=== PATIENT | female | born 1960 | race Two or more races ===

== ENCOUNTER 2017-05-21 08:49 | Emergency (ER) | payer SELFPAY ==
[2017-05-21 08:57] VITALS: BMI 26.9
[2017-05-21] MEDS ORDERED: MECLIZINE HCL 25 MG TABLET (FP) PO ONE (09:27)
--- NOTE | 2017-05-21 09:30 | PDOC ---
History of Present Illness - History of Present Illness Initial Comments: 05/21/17 09:34 The patient is a 56 year old female, with a significant past medical history of HTN (does not take medication for her high blood pressure), who presents to the emergency department with dizziness since last night around 8pm. 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 SHe arrived home around 9pm. She was able to eat some chicken and rice for dinner. She says she was unable to sleep last night. She woke up this morning feeling dizzy and nauseous. She describes her dizziness as room-spinning. She was not able to eat anything today. She states that she has experienced this before a while ago but it lasted for a short period of time and wasnt as severe. She denies recent fevers, chills, headache. She denies recent vomit, diarrhea or constipation. She denies recent chest pain or shortness of breath. Allergies: NKA Past surgical history: None reported. Primary Care Physician: not on staff. <Bharti Monsalve - Last Filed: 05/21/17 09:33> <Angie Stewart - Last Filed: 05/21/17 11:31> - General Chief Complaint: Lightheaded Stated Complaint: LIGHTHEADED and dizziness Time Seen by Provider: 05/21/17 09:07 Past History <Bharti Monsalve - Last Filed: 05/21/17 09:33> - Past Medical History HTN: Yes - Immunization History Immunization Up to Date: Yes - Suicide/Smoking/Psychosocial Hx Smoking History: Never smoked Have you smoked in the past 12 months: No Information on smoking cessation initiated: No Hx Alcohol Use: No Drug/Substance Use Hx: No Substance Use Type: None <Angie Stewart - Last Filed: 05/21/17 11:31> - Past Medical History Allergies/Adverse Reactions: Allergies Allergy/AdvReac Type Severity Reaction Status Date / Time No Known Allergies Allergy Verified 05/21/17 08:56 Home Medications: Ambulatory Orders Citalopram Hydrobromide [Citalopram HBr] 20 mg PO DAILY 02/20/15 Meclizine HCl [Antivert -] 25 mg PO TID #30 tablet 05/21/17 Review of Systems - Review of Systems Able to Perform ROS?: Yes Comments:: 05/21/17 09:34 GENERAL/CONSTITUTIONAL: No fever or chills. No weakness. HEAD, EYES, EARS, NOSE AND THROAT: No change in vision. No ear pain No sore throat. CARDIOVASCULAR: No chest pain or shortness of breath. RESPIRATORY: No cough, wheezing, or hemoptysis. GASTROINTESTINAL: +nausea. No vomiting, diarrhea or constipation. GENITOURINARY: No dysuria, frequency, or change in urination. MUSCULOSKELETAL: No joint or muscle swelling or pain. No neck or back pain. SKIN: No rash NEUROLOGIC: +vertigo. No headache, loss of consciousness, or change in strength/ sensation. ENDOCRINE: No increased thirst. No abnormal weight change. HEMATOLOGIC/LYMPHATIC: No anemia, easy bleeding, or history of blood clots. ALLERGIC/IMMUNOLOGIC: No hives or skin allergy. Is the patient limited Fijian proficient: Yes <Bharti Monsalve Filed: 05/21/17 09:33> *Physical Exam - Vital Signs Last Vital Signs Temp Pulse Resp BP Pulse Ox 98.3 F 72 16 162/58 97 05/21/17 08:53 05/21/17 08:53 05/21/17 08:53 05/21/17 08:53 05/21/17 08:53 - Physical Exam Comments: 05/21/17 09:34 GENERAL: Awake, alert, and fully oriented, in no acute distress HEAD: No signs of trauma EYES: PERRLA, EOMI, sclera anicteric, conjunctiva clear. No nystagmus ENT: +Right TM is completely blocked off with cerumen. Nares patent, oropharynx clear without exudates. Moist mucosa NECK: Normal ROM, supple, no lymphadenopathy, JVD, or masses LUNGS: Breath sounds equal, clear to auscultation bilaterally. No wheezes, and no crackles HEART: Regular rate and rhythm, normal S1 and S2, no murmurs, rubs or gallops ABDOMEN: Soft, nontender, normoactive bowel sounds. No guarding, no rebound. No masses EXTREMITIES: Normal range of motion, no edema. No clubbing or cyanosis. No cords, erythema, or tenderness NEUROLOGICAL: Cranial nerves II through XII grossly intact. Normal speech, normal gait SKIN: Warm, Dry, normal turgor, no rashes or lesions noted. <Bharti Monsalve Filed: 05/21/17 09:33> - Vital Signs Last Vital Signs Temp Pulse Resp BP Pulse Ox 98.3 F 72 16 162/58 97 05/21/17 08:53 05/21/17 08:53 05/21/17 08:53 05/21/17 08:53 05/21/17 08:53 <Angie Stewart - Last Filed: 05/21/17 11:31> Procedures - Additional Procedures Additional Procedures: lavage - initial (ear lavage) <Angie Stewart - Last Filed: 05/21/17 11:31> ED Treatment Course - LABORATORY CBC & Chemistry Diagram: 05/21/17 09:45 05/21/17 09:45 <Angie Stewart - Last Filed: 05/21/17 11:31> Medical Decision Making - Medical Decision Making 05/21/17 09:28 Pt comes with vertigo like symptoms. She had this once before, but never this bad. Pt has no folcal neuro deficits. She has a normal EKG and vitals. Exam is normal. Pt will get meclizine. Pt has a cerumen impaction on the right. We will clear it out and see if pt feels better. 05/21/17 10:34 Pt feeling a bit better with mecizine, and as I remove the impaction from her right ear 05/21/17 11:30 cerumen impaction removed with multiple ear flushes and peroxide and curette. <Angie Stewart - Last Filed: 05/21/17 11:31> *DC/Admit/Observation/Transfer - Attestations Scribe Attestion: 05/21/17 09:35 Documentation prepared by Bharti Monsalve, acting as medical lab technician for Angie Stewart MD. <Bharti Monsalve - Last Filed: 05/21/17 09:33> - Discharge Dispostion Admit: No <Angie Stewart - Last Filed: 05/21/17 11:31> Diagnosis at time of Disposition: Vertigo, Impacted cerumen of right ear - Discharge Dispostion Disposition: HOME Condition at time of disposition: Improved - Prescriptions Prescriptions: Meclizine HCl [Antivert -] 25 mg PO TID #30 tablet - Patient Instructions Printed Discharge Instructions: Vertigo, DI for Dizziness-Nonvertigo, DI for Cerumen Impaction - Post Discharge Activity Forms/Work/School Notes: Back to Work
[2017-05-21] MEDS ORDERED: MECLIZINE HCL 25 MG TABLET (FP) ONE ×2 (09:32→09:33)
[2017-05-21 09:49] LABS: BASOPHIL 0.5 % (0-2.0); EOSINOPHIL 0.8 % (0-4.5); MCH 31.1 pg (25.7-33.7); MCHC 33.5 g/dl (32.0-36.0); MEAN PLT VOLUME 7.6 fl (7.5-11.1); PLATELET COUNT 267 K/MM3 (134-434); RDW 13.5 % (11.6-15.6); WHITE BLOOD COUNT 9.1 K/mm3 (4.0-10.0)
[2017-05-21 10:22] LABS: ALBUMIN 3.5 g/dl (3.4-5.0); ANION GAP 8 (8-16); BILIRUBIN,TOTAL 0.4 mg/dL (0.2-1.0); CALCIUM 8.4 mg/dL (8.5-10.1); CO2 27 mmol/L (21-32); CREATININE 0.6 mg/dL (0.55-1.02); GLUCOSE,RANDOM 102 mg/dL (74-106); SGOT/AST 12 U/L (15-37); SGPT/ALT 23 U/L (12-78); TOT PROT 7.4 g/dl (6.4-8.2)
[2017-05-21 10:25] LABS: ALK PHOS 98 U/L (45-117); CPK 101 IU/L (26-192); TROPONIN I 0.04 ng/ml (0.00-0.05)
[2017-05-21 11:42] VITALS: BP 144/76; PULSE 76; TEMP 98
[2017-05-21] MEDS ORDERED: ONDANSETRON 4 MG TABLET PO ONE (11:44)
[2017-05-21] MEDS ORDERED: ONDANSETRON *ODT* 4 MG TABLET ONE (11:45)
--- NOTE | 2017-05-22 11:58 | EKG ---
Test Reason : Blood Pressure : / mmHG Vent. Rate : 064 BPM Atrial Rate : 064 BPM P-R Int : 146 ms QRS Dur : 088 ms QT Int : 422 ms P-R-T Axes : 038 -02 027 degrees QTc Int : 435 ms NORMAL SINUS RHYTHM NORMAL ECG WHEN COMPARED WITH ECG OF 20-FEB-2015 22:44, NO SIGNIFICANT CHANGE WAS FOUND Confirmed by SATINDER EWING MD ([id number]) on 05/22/2017 11:58:10 AM Referred By: Confirmed By:SATINDER EWING MD
== END 2017-05-21 12:07 | disposition home or self-care (01) ==
LOC: JER 08:49
DX: H61.21 Impacted cerumen, right ear (principal); R42 Dizziness and giddiness; I10 Essential (primary) hypertension
CPT/HCPCS: 36415; 80053; 82550; 84484; 85025; 93005; 93010; 99282-25

== ENCOUNTER 2018-01-27 14:51 | Emergency (ER) | payer SELFPAY ==
--- NOTE | 2018-01-27 14:58 | PDOC ---
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
[2018-01-27 15:03] VITALS: TEMP 97.7; BMI 27.1
--- NOTE | 2018-01-27 15:32 | PDOC ---
History of Present Illness - General Chief Complaint: Psychiatric Stated Complaint: DIZZY/WEAKNESS Time Seen by Provider: 01/27/18 14:54 - History of Present Illness Initial Comments: 01/27/18 15:32 Ms. 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 She reports she has had similar symptoms before when her anxiety acted up while watching her children fighting and that her symptoms have since resolved. The patient denies chest pain, shortness of breath, headache and dizziness. Denies fever, chills, nausea, vomit, diarrhea and constipation. Denies dysuria, frequency, urgency and hematuria. Allergies: NKDA Past History - Past Medical History Allergies/Adverse Reactions: Allergies Allergy/AdvReac Type Severity Reaction Status Date / Time No Known Allergies Allergy Verified 01/27/18 14:57 Home Medications: Ambulatory Orders Citalopram Hydrobromide [Citalopram HBr] 20 mg PO DAILY 02/20/15 Meclizine HCl [Antivert -] 25 mg PO TID #30 tablet 05/21/17 COPD: No HTN: Yes - Immunization History Immunization Up to Date: Yes - Suicide/Smoking/Psychosocial Hx Smoking History: Never smoked Have you smoked in the past 12 months: No Hx Alcohol Use: No Drug/Substance Use Hx: No Substance Use Type: None Review of Systems - Review of Systems Comments:: 01/27/18 15:34 GENERAL/CONSTITUTIONAL: No fever or chills. No weakness. HEAD, EYES, EARS, NOSE AND THROAT: No change in vision. No ear pain or discharge. No sore throat. CARDIOVASCULAR: +Anxiety / palpitations as described. No chest pain or shortness of breath RESPIRATORY: No cough, wheezing, or hemoptysis. GASTROINTESTINAL: No nausea, vomiting, diarrhea or constipation. GENITOURINARY: No dysuria, frequency, or change in urination. MUSCULOSKELETAL: No joint or muscle swelling or pain. No neck or back pain. SKIN: No rash NEUROLOGIC: No headache, vertigo, loss of consciousness, or change in strength/ sensation. ENDOCRINE: No increased thirst. No abnormal weight change HEMATOLOGIC/LYMPHATIC: No anemia, easy bleeding, or history of blood clots. ALLERGIC/IMMUNOLOGIC: No hives or skin allergy. *Physical Exam - Vital Signs Last Vital Signs Temp Pulse Resp BP Pulse Ox 97.7 F 93 H 18 179/99 99 01/27/18 14:57 01/27/18 14:57 01/27/18 14:57 01/27/18 14:57 01/27/18 14:57 - Physical Exam Comments: 01/27/18 15:34 GENERAL: Awake, alert, and fully oriented, in no acute distress HEAD: No signs of trauma, normocephalic, atraumatic EYES: PERRLA, EOMI, sclera anicteric, conjunctiva clear ENT: Auricles normal inspection, hearing grossly normal, nares patent, oropharynx clear without exudates. Moist mucosa NECK: Normal ROM, supple, no lymphadenopathy, JVD, or masses LUNGS: No distress, speaks full sentences, clear to auscultation bilaterally HEART: Regular rate and rhythm, normal S1 and S2, no murmurs, rubs or gallops, peripheral pulses normal and equal bilaterally. ABDOMEN: Soft, nontender, normoactive bowel sounds. No guarding, no rebound. No masses EXTREMITIES: Normal inspection, Normal range of motion, no edema. No clubbing or cyanosis. NEUROLOGICAL: Cranial nerves II through XII grossly intact. Normal speech, normal gait, no focal sensorimotor deficits SKIN: Warm, Dry, normal turgor, no rashes or lesions noted. ED Treatment Course - LABORATORY CBC & Chemistry Diagram: 01/27/18 15:33 01/27/18 15:33 Medical Decision Making - Medical Decision Making 01/27/18 16:54 Ms. Cruz is a 57 yo female w/ pmh as described who presents for evaluation of anxiety symptoms. Labs grossly unconcerning as below, patient reporting relief from symptoms. No concern for acute process at this time. EKG normal. Discharging patient to home with instructions to follow-up for noted hypertension with PCP. *DC/Admit/Observation/Transfer Diagnosis at time of Disposition: Anxiety attack - Discharge Dispostion Disposition: HOME - Referrals Referrals: [facility] [place] [facility] [place] [Provider Group] - Patient Instructions Printed Discharge Instructions: DI for High Blood Pressure, DI for Anxiety -- Adult Additional Instructions: Please follow-up with primary care provider for evaluation of high blood pressure noted today in clinic. We have provided additional primary care physician information for you if you require a new provider. Return to ER if any increase in anxiety, fever, chills, or other concerning symptoms. Print Language: NEPALI - Post Discharge Activity
[2018-01-27 16:01] LABS: BASO % 0.7 % (0-2.0); EOS % 3.1 % (0-4.5); HEMATOCRIT 38.2 % (32.4-45.2); HEMOGLOBIN 12.9 GM/dL (10.7-15.3); MCH 31.2 pg (25.7-33.7); MCHC 33.7 g/dl (32.0-36.0); MEAN CELL VOLUME 92.7 fl (80-96); MEAN PLT VOLUME 8.4 fl (7.5-11.1); MONO % 5.3 % (3.8-10.2); NEUT % 69.9 % (42.8-82.8); PLATELET COUNT 294 K/MM3 (134-434); RBC 4.12 M/mm3 (3.60-5.2); RDW 13.5 % (11.6-15.6); WHITE BLOOD COUNT 8.7 K/mm3 (4.0-10.0)
[2018-01-27 16:23] LABS: URINE APPEARANCE CLEAR; URINE BILIRUBIN NEGATIVE (<2.0 mg/dL); URINE COLOR COLORLESS; URINE GLUCOSE (UA) NEGATIVE (NEGATIVE); URINE KETONE NEGATIVE (NEGATIVE); URINE LEUK ESTERASE TRACE (NEGATIVE); URINE NITRITE NEGATIVE (NEGATIVE); URINE PROTEIN NEGATIVE (NEGATIVE); URINE UROBILINOGEN NEGATIVE mg/dL (0.2-1.0)
--- NOTE | 2018-01-27 16:24 | PDOC ---
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 Patient states symptoms are identical to an anxiety attack she had a couple of years ago when she witnessed her children having a verbal argument, takes antidepressants but has never been on when necessary angiolytics. Has not had panic attacks since then. At baseline , has no exercise limitations and is currently feeling markedly improved and back to baseline. No specific stressors today, no acute depression complaints. - Physicial Exam PE: 01/27/18 16:21 VSS, elevated BP at triage, HR improved to 72 on my exam well appearing, conversant and pleasant, smiling mmm op clear, neck supple s1s2 rrr, no audible murmur no edema/calf ttp neuro intact no acute psych issues, affect wnl - Medical Decision Making 01/27/18 16:22 57y/o F with presentation consistent with anxiety attack, apparently unprovoked but identical to past episodes. sxs resolved, feels well. not consistent with ACS or arrhythmia, no acute psych issues. labs ekg declines anxiolytics at this time if above is wnl and continues to feel better, can f/u with PMD
[2018-01-27 16:25] LABS: ALBUMIN 3.7 g/dl (3.4-5.0); ANION GAP 9 (8-16); BLOOD UREA NITROGEN 14 mg/dL (7-18); CALCIUM 8.1 mg/dL (8.5-10.1); CHLORIDE 104 mmol/L (98-107); CO2 26 mmol/L (21-32); CREATININE 0.6 mg/dL (0.55-1.02); GLUCOSE,RANDOM 100 mg/dL (74-106); POTASSIUM 3.9 mmol/L (3.5-5.1); SGOT/AST 13 U/L (15-37); SGPT/ALT 26 U/L (12-78); SODIUM 139 mmol/L (136-145)
[2018-01-27 16:34] LABS: ALK PHOS 100 U/L (45-117); BILIRUBIN,TOTAL 0.3 mg/dL (0.2-1.0); TOT PROT 7.8 g/dl (6.4-8.2)
[2018-01-27 16:35] VITALS: BP 200/98; PULSE 86
[2018-01-27 16:38] LABS: EPI CELLS RARE /HPF (FEW); URINE BACTERIA RARE /hpf (NONE SEEN)
--- NOTE | 2018-01-28 10:42 | EKG ---
Test Reason : Blood Pressure : / mmHG Vent. Rate : 066 BPM Atrial Rate : 066 BPM P-R Int : 154 ms QRS Dur : 082 ms QT Int : 428 ms P-R-T Axes : 050 001 038 degrees QTc Int : 448 ms NORMAL SINUS RHYTHM NORMAL ECG WHEN COMPARED WITH ECG OF 21-MAY-2017 09:22, NO SIGNIFICANT CHANGE WAS FOUND Confirmed by ENRICO BRAVO MD ([id number]) on 01/28/2018 10:41:51 AM Referred By: Confirmed By:ENRICO BRAVO MD
== END 2018-01-27 17:08 | disposition home or self-care (01) ==
LOC: JER 14:51
DX: F41.0 Panic disorder [episodic paroxysmal anxiety] (principal); F41.8 Other specified anxiety disorders; I10 Essential (primary) hypertension
CPT/HCPCS: 36415; 80053; 81003; 81015; 82550; 84443; 84484; 85025; 93005; 93010; 99283-25

== ENCOUNTER 2018-08-29 19:35 | Observation (INO) | payer OTHER ==
--- NOTE | 2018-08-29 19:46 | PDOC ---
History of Present Illness - General Chief Complaint: Blood Pressure Problem Stated Complaint: anxiety Time Seen by Provider: 08/29/18 19:46 - History of Present Illness Initial Comments: 08/29/18 20:12 The patient is a 57 year old female with a PMH of Depression who presents with shortness of breath and abdominal pain. 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 Notes she was evaluated by her primary care doctor three months previous and was not started on BP meds but given a BP cuff to measure pressures at home. Patient states she has only measured her pressure on one previous occasion and it was high though she can't recall the number. On attending exam, patient c/o perioral numbness. NKDA Surgical: none reported As per EMR, patient last evaluated in our ED in 01/2018 for anxiety at which time labs and EKG showed no concerning findings and patient was discharged home. Past History - Past Medical History Allergies/Adverse Reactions: Allergies Allergy/AdvReac Type Severity Reaction Status Date / Time No Known Allergies Allergy Verified 08/29/18 19:41 Home Medications: Ambulatory Orders Citalopram Hydrobromide [Citalopram HBr] 20 mg PO DAILY 02/20/15 Meclizine HCl [Antivert -] 25 mg PO TID #30 tablet 05/21/17 COPD: No HTN: Yes Psychiatric Problems: Yes (depression) - Immunization History Immunization Up to Date: Yes - Suicide/Smoking/Psychosocial Hx Smoking History: Never smoked Have you smoked in the past 12 months: No Information on smoking cessation initiated: No Hx Alcohol Use: No Drug/Substance Use Hx: No Substance Use Type: None Review of Systems - Review of Systems Constitutional: No: Chills, Fever HEENTM: No: Recent change in vision Respiratory: Yes: Shortness of Breath. No: Cough, Wheezing Cardiac (ROS): No: Chest Pain, Lightheadedness, Palpitations, Syncope ABD/GI: Yes: Abdominal cramping. No: Constipated, Diarrhea, Nausea, Vomiting : No: Burning, Dysuria *Physical Exam - Vital Signs Last Vital Signs Temp Pulse Resp BP Pulse Ox 97.8 F 121 H 16 211/104 H 100 08/29/18 19:38 08/29/18 19:38 08/29/18 19:38 08/29/18 19:38 08/29/18 19:38 - Physical Exam General Appearance: Yes: Nourished, Obese HEENT: positive: Normal Voice, Hearing Grossly Normal Neck: positive: Trachea midline, Supple Respiratory/Chest: positive: Lungs Clear, Normal Breath Sounds Cardiovascular: positive: S1, S2. negative: Edema, JVD, Murmur Vascular Pulses: Dorsalis-Pedis (R): 2+, Doralis-Pedis (L): 2+ Gastrointestinal/Abdominal: positive: Normal Bowel Sounds, Soft Moderate Sedation - Procedure Monitoring Vital Signs: Procedure Monitoring Vital Signs Temperature 97.8 F 08/29/18 19:38 Pulse Rate 121 H 08/29/18 19:38 Respiratory Rate 16 08/29/18 19:38 Blood Pressure 211/104 H 08/29/18 19:38 O2 Sat by Pulse Oximetry (%) 100 08/29/18 19:38 Heart Score/ECG Review - ECG Impressions Comment:: 08/29/18 21:03 EKG show sinus tachycardia HR 100, normal intervals, no deviation, no SIRENA/STD/ TWI, good R wave progression V1-V6. ED Treatment Course - LABORATORY CBC & Chemistry Diagram: 08/29/18 20:30 08/29/18 20:30 Medical Decision Making - Medical Decision Making 08/29/18 20:20 57 year old female with abdominal pain and subjective dyspnea. At presentation hypertensive (BP 211/104) and Tachycardic (HR 121), C/o abdominal pain, perioral numbness. Frontal diagnosis: r/o CVA/TIA, Inferior MS (c/o abdominal pain), Angina, Hypertensive urgency/emergency. Will obtain CT head, basic labs , EKG, Troponin. Reassess. Repeat BP s/p Diovan (195/94) EKG non-ischemic as documented in EKG section of EMR. 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 08/29/18 21:19 Case d/w Dr. Mason (Hospitalist)/Dr. Castellano (Resident) patient admitted to [facility] Tele 08/29/18 21:32 Hospitalist requesting D-Dimer as patient c/o acute onset of dyspnea. Wells Score 1.5; called chemistry will add on to existing labs 08/29/18 21:36 Patient and patient's daughter @ bedside counseled on plan of care. *DC/Admit/Observation/Transfer Diagnosis at time of Disposition: High blood pressure - Discharge Dispostion Condition at time of disposition: Fair Decision to Admit order: Yes - Referrals - Patient Instructions - Post Discharge Activity
[2018-08-29] MEDS ORDERED: VALSARTAN 40 MG TABLET (FP) PO ONE (19:50)
[2018-08-29] MEDS ORDERED: NITROGLYCERIN 2% OINTMENT - 1GM PACKET TD ONE ×2 (19:56→20:10)
[2018-08-29] MEDS ORDERED: NITROGLYCERIN SUBLINGUAL 1/150 0.4 MG TAB SL ONE (19:56)
[2018-08-29] MEDS ORDERED: VALSARTAN 80 MG TABLET (UD) ONE (20:00)
[2018-08-29] MEDS ORDERED: ASPIRIN 81 MG CHEWABLE TABLETS PO ONE (20:01)
[2018-08-29] MEDS ORDERED: METOPROLOL TARTRATE 50 MG TABLET (FP) PO ONE (20:04)
[2018-08-29] MEDS ORDERED: ASPIRIN 81 MG CHEWABLE TABLETS ONE (20:09)
--- NOTE | 2018-08-29 20:09 | PDOC ---
Attending Attestation - HPI HPI: 08/29/18 20:21 The patient is a 57 year old female with a past medical history of HTN and major depressive disorder here today for evaluation of high blood pressure and epigastric pain. 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 She reports having a similar episode 3-4 months. She notes epigastric pain, intermittent shortness of breath, and mouth numbness. Patient denies headache, lightheadedness. Denies fever, chills. Denies chest pain, shortness of breath. Denies nausea, vomiting, diarrhea. Allergies: NKA - Physicial Exam PE: 08/29/18 20:23 GENERAL: Awake, alert, and fully oriented, in no acute distress HEAD: No signs of trauma EYES: PERRLA, EOMI, sclera anicteric, conjunctiva clear ENT: Auricles normal inspection, hearing grossly normal, nares patent, oropharynx clear without exudates. Moist mucosa NECK: Normal ROM, supple, no lymphadenopathy, JVD, or masses LUNGS: Breath sounds equal, clear to auscultation bilaterally. No wheezes, and no crackles HEART: +tachycardic. Regular rhythm, normal S1 and S2, no murmurs, rubs or gallops ABDOMEN: Soft, nontender, normoactive bowel sounds. No guarding, no rebound. No masses EXTREMITIES: Normal range of motion, no edema. No clubbing or cyanosis. No cords, erythema, or tenderness NEUROLOGICAL: Cranial nerves II through XII grossly intact. Normal speech, normal gait SKIN: Warm, Dry, normal turgor, no rashes or lesions noted. - Medical Decision Making 08/29/18 20:21 Documentation prepared by MELISSA Gibbs, acting as certified medical assistant for Angie Stewart MD. <Jose Chua - Last Filed: 08/29/18 20:23> - Resident Resident Name: Neda Lopez - ED Attending Attestation I have performed the following: I have examined & evaluated the patient, The case was reviewed & discussed with the resident, I agree w/resident's findings & plan - Medical Decision Making 08/29/18 20:12 pt will be brought into the tele unit for evaluation of her heart. 08/29/18 20:59 Patient Name: RODRIGUEZ CHRISTIAN THIS IS A PRELIMINARY REPORT FROM [facility] DATE OF SERVICE: 2018-08-29 20:33:00 IMAGES: 133 Exam: CT head without IV contrast. Clinical indication:Hypo-pressure. Tachycardia. Perioral numbness. Comparison:None available. Technique: Axial unenhanced CT images from the skull base through the brain were obtained followed by coronal and sagital reformats. Findings: The visualized bony structures are unremarkable. The visualized paranasal sinuses and mastoid air cells are clear. There is no evidence of intra-or extra-axial hemorrhage. The ventricles and basilar cisterns are unremarkable. There is no evidence of intracranial mass, acute infarct, or midline shift. Impression: Negative unenhanced CT of the brain. 08/29/18 21:07 BP went from 211 to 203 to 190s to 180s and now improved.... Pt has normal labs trop is 0.4 She will be admitted to [facility] for obs overnight. She has elevated trig; low HDL and high LDL. All other labs normal CXR: cardiomegaly; normal Head CT normal. She will be admitted to hospitalist.Telemetry obs. <Angie Stewart - Last Filed: 08/29/18 21:56> Heart Score/ECG Review - ECG Impressions Normal ECG: No Non-specific ST Elevation: No Ischemic Changes: No Bradycardia: No Tachycardia: Sinus Torsades anel Pointes: No WPW: No <Angie Stewart - Last Filed: 08/29/18 21:56>
[2018-08-29] MEDS ORDERED: METOPROLOL TARTRATE 25 MG TABLET (FP) ONE (20:10)
--- NOTE | 2018-08-29 20:21 | PDOC ---
NIH Stroke Scale - Initial Evaluation Level of consciousness: Alert Ask patient the month and their age: Answers both correctly Ask patient to open & close eyes; make fist and let go: Obeys both correctly Best gaze (horizontal eye movement): Normal Visual field testing: No visual field loss Facial paresis (Show teeth/raise eyebrows/close eyes tight): Normal symmetrical movement Motor Function: Left Arm: Normal Motor Function: Right Arm: Normal (extends arm 90 (or 45) degrees for 10 seconds without drift Motor Function: Left Leg: Normal (extends leg 30 degrees for 5 seconds without drift) Motor Function: Right Leg: Normal (extends leg 30 degrees for 5 seconds without drift) Limb Ataxia: No ataxia Sensory(Use pinprick test arms,legs,trunk,face/side to side): Normal Best language (Describe picture, name items, read sentences): No Aphasia Dysarthria (read several words): Normal articulation Extinction and Inattention: No abnormality - Total Score NIH Stroke Scale Score: 0
[2018-08-29 20:37] LABS: BASO % 0.5 % (0-2.0); EOS % 1.7 % (0-4.5); HEMATOCRIT 37.3 % (32.4-45.2); LYMPH % 27.4 % (8-40); MCH 32.4 pg (25.7-33.7); MCHC 34.8 g/dl (32.0-36.0); MEAN CELL VOLUME 93.2 fl (80-96); MEAN PLT VOLUME 7.8 fl (7.5-11.1); MONO % 5.4 % (3.8-10.2); PLATELET COUNT 275 K/MM3 (134-434); RDW 13.3 % (11.6-15.6); WHITE BLOOD COUNT 9.6 K/mm3 (4.0-10.0)
[2018-08-29 20:49] LABS: INR 1.05 (0.83-1.09); PROTHROMBIN TIME (PATIENT) 12.4 SEC (9.7-13.0)
[2018-08-29 21:01] LABS: CHOLESTEROL 195 mg/dL (50-200); HDL CHOLESTEROL 38 mg/dL (40-60); TRIGLYCERIDES 255 mg/dL (0-150)
[2018-08-29 21:03] LABS: ALBUMIN 3.9 g/dl (3.4-5.0); ALK PHOS 114 U/L (45-117); ANION GAP 9 MMOL/L (8-16); BILIRUBIN,TOTAL 0.2 mg/dL (0.2-1); BLOOD UREA NITROGEN 17 mg/dL (7-18); CALCIUM 8.2 mg/dL (8.5-10.1); CHLORIDE 104 mmol/L (98-107); CO2 26 mmol/L (21-32); CREATININE 0.9 mg/dL (0.55-1.3); GLUCOSE,RANDOM 149 mg/dL (74-106); POTASSIUM 3.7 mmol/L (3.5-5.1); SGOT/AST 10 U/L (15-37); SGPT/ALT 21 U/L (13-61); SODIUM 139 mmol/L (136-145); TOT PROT 7.7 g/dl (6.4-8.2)
[2018-08-29] MEDS ORDERED: amLODIPine BESYLATE 10 MG TABLET (FP) PO ONE (21:40)
[2018-08-29] MEDS ORDERED: amLODIPine BESYLATE 5 MG TABLET (FP) ONE (21:43)
[2018-08-29 22:00] LABS: URINE APPEARANCE CLEAR; URINE BILIRUBIN NEGATIVE (<2.0 mg/dL); URINE COLOR STRAW; URINE GLUCOSE (UA) NEGATIVE (NEGATIVE); URINE KETONE NEGATIVE (NEGATIVE); URINE LEUK ESTERASE 1+ (NEGATIVE); URINE NITRITE NEGATIVE (NEGATIVE); URINE PROTEIN NEGATIVE (NEGATIVE); URINE UROBILINOGEN NEGATIVE mg/dL (0.2-1.0)
--- NOTE | 2018-08-29 22:03 | HP ---
CHIEF COMPLAINT: elevated blood pressure HISTORY OF PRESENT ILLNESS: Patient is a 57 yo F with a PMHx of HTN (not on meds ), presented to the ED because of palpitations and an elevated blood pressure. 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 She said a nearby person who happened to be a nurse checked her BP and said it was very elevated. Patient also said she had difficulty breathing during that episode. She says she was also having a headache that radiated down to her right ear. She had similar episodes a few months ago and her doctor told her she had HTN but she never followed up after. She currently is asymptomatic. She denies chest pain, dizziness, sob, nausea, vomiting, abdominal pain, urinary changes, LOC, hemoptysis, cough. ER course was notable for: (1) 211/104 BP (2) Tachycardic 121 Recent Travel: denies PAST MEDICAL HISTORY: HTN Social History: Smoking: denies Alcohol: denies Drugs: denies Family History: Allergies No Known Allergies Allergy (Verified 08/29/18 19:41) HOME MEDICATIONS: Home Medications Medication Instructions Recorded Citalopram Hydrobromide 20 mg PO DAILY 02/20/15 [Citalopram HBr] Meclizine HCl [Antivert -] 25 mg PO TID #30 tablet 05/21/17 REVIEW OF SYSTEMS CONSTITUTIONAL: Absent: fever, chills, diaphoresis, generalized weakness, malaise, loss of appetite, weight change HEENT: Absent: rhinorrhea, nasal congestion, throat pain, throat swelling, difficulty swallowing, mouth swelling, ear pain, eye pain, visual changes CARDIOVASCULAR: palpitations Absent: chest pain, syncope, irregular heart rate, lightheadedness, peripheral edema RESPIRATORY: SOB Absent: cough, dyspnea with exertion, orthopnea, wheezing, stridor, hemoptysis GASTROINTESTINAL: Absent: abdominal pain, abdominal distension, nausea, vomiting, diarrhea, constipation, melena, hematochezia GENITOURINARY: Absent: dysuria, frequency, urgency, hesitancy, hematuria, flank pain, genital pain MUSCULOSKELETAL: Absent: myalgia, arthralgia, joint swelling, back pain, neck pain SKIN: Absent: rash, itching, pallor HEMATOLOGIC/IMMUNOLOGIC: Absent: easy bleeding, easy bruising, lymphadenopathy, frequent infections ENDOCRINE: Absent: unexplained weight gain, unexplained weight loss, heat intolerance, cold intolerance NEUROLOGIC: Absent: headache, focal weakness or paresthesias, dizziness, unsteady gait, seizure, mental status changes, bladder or bowel incontinence PSYCHIATRIC: Absent: anxiety, depression, suicidal or homicidal ideation, hallucinations. PHYSICAL EXAMINATION Vital Signs - 24 hr 08/29/18 08/29/18 08/29/18 19:38 20:00 20:22 Temperature 97.8 F Pulse Rate 121 H Respiratory 16 Rate Blood Pressure 211/104 H Blood Pressure 195/104 H 186/94 H [Right Arm] O2 Sat by Pulse 100 Oximetry (%) GENERAL: Awake, alert, and fully oriented, in no acute distress. HEAD: Normal with no signs of trauma. EYES: Pupils equal, round and reactive to light, extraocular movements intact, sclera anicteric, conjunctiva clear. EARS, NOSE, THROAT: oropharynx clear without exudates. Moist mucous membranes. NECK: supple without lymphadenopathy, JVD, or masses. LUNGS: Breath sounds equal, clear to auscultation bilaterally. No wheezes, and no crackles. No accessory muscle use. HEART: tachy, normal S1 and S2 without murmur, rub or gallop. ABDOMEN: Soft, nontender, not distended, normoactive bowel sounds, no guarding, no rebound, no masses. No hepatomegaly or splenomegaly. MUSCULOSKELETAL: Normal range of motion at all joints. No bony deformities or tenderness. No CVA tenderness. UPPER EXTREMITIES: 2+ pulses, warm, well-perfused. No cyanosis. No clubbing. No peripheral edema. LOWER EXTREMITIES: 2+ pulses, warm, well-perfused. No calf tenderness. No peripheral edema. NEUROLOGICAL: Cranial nerves II-XII intact. Normal speech. Normal gait. PSYCHIATRIC: Cooperative. Good eye contact. Appropriate mood and affect. SKIN: Warm, dry, normal turgor, no rashes or lesions noted, normal capillary refill. Laboratory Results - last 24 hr 08/29/18 08/29/18 08/29/18 20:30 20:30 20:30 WBC 9.6 RBC 4.00 Hgb 13.0 Hct 37.3 MCV 93.2 MCH 32.4 MCHC 34.8 RDW 13.3 Plt Count 275 MPV 7.8 Absolute Neuts (auto) 6.2 Neutrophils % 65.0 Lymphocytes % 27.4 D Monocytes % 5.4 Eosinophils % 1.7 Basophils % 0.5 Nucleated RBC % 0 PT with INR 12.40 INR 1.05 PTT (Actin FS) 29.0 Sodium Potassium Chloride Carbon Dioxide Anion Gap BUN Creatinine Creat Clearance w eGFR Random Glucose Calcium Total Bilirubin AST ALT Alkaline Phosphatase Creatine Kinase Troponin I Total Protein Albumin Triglycerides Cholesterol Total LDL Cholesterol HDL Cholesterol 08/29/18 08/29/18 20:30 20:30 WBC RBC Hgb Hct MCV MCH MCHC RDW Plt Count MPV Absolute Neuts (auto) Neutrophils % Lymphocytes % Monocytes % Eosinophils % Basophils % Nucleated RBC % PT with INR INR PTT (Actin FS) Sodium 139 Potassium 3.7 Chloride 104 Carbon Dioxide 26 Anion Gap 9 BUN 17 Creatinine 0.9 Creat Clearance w eGFR > 60 Random Glucose 149 H Calcium 8.2 L Total Bilirubin 0.2 AST 10 L ALT 21 Alkaline Phosphatase 114 Creatine Kinase 89 Troponin I 0.04 Total Protein 7.7 Albumin 3.9 Triglycerides 255 H Cholesterol 195 Total LDL Cholesterol 121 H HDL Cholesterol 38 L ASSESSMENT/PLAN: 57 yo F with a PMHx of HTN (not on meds), presented to the ED because of palpitations and an elevated blood pressure. #HTN Urgency -hx of HTN. Not on any meds -Metoprolol x1 in ED, Norvasc 10mg x 1 -Start Losartan and HCTZ in AM -BP now 186/94 -consult cardiology -monitor BP -U/A -Tele #SOB -resolved -likely from HTN/palpitations -unlikely PE -d dimer -100% on Room air -monitor #FEN -No IV fluids -monitor -Sodium controlled #DVT -lovenox tele/obs Visit type - Emergency Visit Emergency Visit: Yes ED Registration Date: 08/29/18 Care time: The patient presented to the Emergency Department on the above date and was hospitalized for further evaluation of their emergent condition. - New Patient This patient is new to me today: Yes Date on this admission: 09/06/18 - Critical Care Critical Care patient: No
[2018-08-29 22:19] LABS: EPI CELLS RARE /HPF (FEW); URINE BACTERIA RARE /hpf (NONE SEEN)
--- NOTE | 2018-08-29 22:33 | PN ---
Teaching Attending Note Name of Resident: Burt Castellano ATTENDING PHYSICIAN STATEMENT I saw and evaluated the patient. I reviewed the resident's note and discussed the case with the resident. I agree with the resident's findings and plan as documented. 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 admit the patient for HTN Urgency - - start the patient on triple therapy for her HTN - amlodipine stat 10mg in the ER - then start Losartan and HCTZ in AM -monitor BP -U/A -Tele #SOB with palpitations obtain D-dimer and if negative then unlikely PE if D-dimer positive obtain a CT angiogram to evaluate the patient for pulmonary embolism
[2018-08-30] MEDS ORDERED: LACTATED RINGERS SOLUTION 1000 ML INFUS.BAG IV ONE (02:51)
[2018-08-30 06:01] LABS: BASO % 0.4 % (0-2.0); EOS % 1.2 % (0-4.5); HEMOGLOBIN 12.1 GM/dL (10.7-15.3); LYMPH % 26.2 % (8-40); MCH 32.4 pg (25.7-33.7); MCHC 34.6 g/dl (32.0-36.0); MEAN CELL VOLUME 93.7 fl (80-96); MEAN PLT VOLUME 8.1 fl (7.5-11.1); MONO % 7.5 % (3.8-10.2); NEUT % 64.7 % (42.8-82.8); PLATELET COUNT 259 K/MM3 (134-434); RBC 3.73 M/mm3 (3.60-5.2); RDW 13.7 % (11.6-15.6); WHITE BLOOD COUNT 9.3 K/mm3 (4.0-10.0)
[2018-08-30 06:31] LABS: ALBUMIN 3.5 g/dl (3.4-5.0); ALK PHOS 85 U/L (45-117); ANION GAP 6 MMOL/L (8-16); BILIRUBIN,TOTAL 0.3 mg/dL (0.2-1); BLOOD UREA NITROGEN 18 mg/dL (7-18); CALCIUM 8.7 mg/dL (8.5-10.1); CHLORIDE 106 mmol/L (98-107); CO2 29 mmol/L (21-32); CREATININE 0.6 mg/dL (0.55-1.3); GLUCOSE,RANDOM 94 mg/dL (74-106); MAGNESIUM 2.4 mg/dL (1.8-2.4); PHOSPHOROUS 3.9 mg/dL (2.5-4.9); POTASSIUM 4.2 mmol/L (3.5-5.1); SGOT/AST 13 U/L (15-37); SGPT/ALT 17 U/L (13-61); SODIUM 141 mmol/L (136-145); TOT PROT 6.8 g/dl (6.4-8.2)
[2018-08-30 07:54] VITALS: BMI 25.7
[2018-08-30] MEDS: ENOXAPARIN NA (PORCINE) 40 MG/0.4 ML DISP.SYRIN SQ SCH (09:46)
[2018-08-30 09:53] LABS: INR 1.09 (0.83-1.09); PROTHROMBIN TIME (PATIENT) 12.9 SEC (9.7-13.0)
[2018-08-30] MEDS: LOSARTAN 50MG/HCTZ 12.5MG 1 TAB (FP) PO SCH (10:32)
--- NOTE | 2018-08-30 12:18 | CON.CARD ---
Consult Consult Specialty:: cardiology Reason for Consultation:: CAD risks - History of Present Illness Chief Complaint: Pt A&(x3; asymptomatic presently. Her daughter is at bedside. History of Present Illness: The patient is a 57 year old female (b. [place]) with a PMH of Depression, "borderline: HTN, hyperlipidemia (not on medication on admission) who presents with shortness of breath and abdominal pain. 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 Notes she was evaluated by her primary care doctor three months previous and was not started on BP meds but given a BP cuff to measure pressures at home. Patient states she has only measured her pressure on one previous occasion and it was high though she can't recall the number. On attending exam, patient c/o perioral numbness. - History Source History Provided By: Patient, Family Member (daughter), Medical Record Limitations to Obtaining History: No Limitations - Past Medical History Cardio/Vascular: Yes: HTN Gastrointestinal: Yes: Gastritis Reproductive: Yes: Postmenopausal ...: No Psych: Yes: Anxiety, Depression - Alcohol/Substance Use Hx Alcohol Use: No - Smoking History Smoking history: Never smoked Have you smoked in the past 12 months: No Home Medications - Allergies Allergies/Adverse Reactions: Allergies Allergy/AdvReac Type Severity Reaction Status Date / Time No Known Allergies Allergy Verified 08/29/18 19:41 - Home Medications Home Medications: Ambulatory Orders Citalopram Hydrobromide [Citalopram HBr] 20 mg PO DAILY 02/20/15 Aspirin [ASA -] 81 mg PO DAILY 28 Days #28 tab.chew 08/31/18 Atorvastatin Ca [Lipitor] 10 mg PO HS 28 Days #28 tablet 08/31/18 Losartan 50Mg/Hctz 12.5MG [Hyzaar -] 1 tab PO DAILY 28 Days #28 tablet 08/31/18 Family Disease History - Family Disease History Family Disease History: Diabetes: Sister (HTN) Review of Systems - Review of Systems Constitutional: reports: No Symptoms Eyes: reports: No Symptoms HENT: reports: No Symptoms Neck: reports: No Symptoms Respiratory: reports: No Symptoms Gastrointestinal: reports: Other Genitourinary: reports: No Symptoms Breasts: reports: No Symptoms Reported Musculoskeletal: reports: No Symptoms Integumentary: reports: No Symptoms Neurological: reports: No Symptoms Endocrine: reports: No Symptoms Hematology/Lymphatic: reports: No Symptoms Psychiatric: reports: Anxiety, Depression - Risk Factors Known Risk Factors: Yes: Age, Hypercholesterolemia, Hypertension, Other ( postmenopausal; depression) Vital Signs: Vital Signs Temperature 98.0 F 08/30/18 07:55 Pulse Rate 66 08/30/18 07:55 Respiratory Rate 16 08/30/18 07:55 Blood Pressure 151/82 08/30/18 07:55 O2 Sat by Pulse Oximetry (%) 98 08/30/18 04:28 Constitutional: Yes: Anxious Eyes: Yes: WNL HENT: Yes: WNL Neck: Yes: WNL Respiratory: Yes: WNL Gastrointestinal: Yes: WNL Renal/: Yes: WNL Cardiovascular: Yes: WNL JVD: No Carotid Bruit: No PMI: Non-Displaced Heart Sounds: Yes: S1, S2, S4 Musculoskeletal: Yes: WNL Extremities: Yes: WNL Edema: No Peripheral Pulses WNL: Yes Integumentary: Yes: WNL Neurological: Yes: WNL Psychiatric: Yes: Other - Other Data Labs, Other Data: CBC, BMP 08/30/18 05:15 08/30/18 05:15 INR, PTT INR 1.09 (0.83-1.09) 08/30/18 05:15 Troponin, BNP 08/29/18 20:30 Troponin I 0.04 Troponin, BNP 08/29/18 20:30 Troponin I 0.04 Abnormal Lab Results 08/31/18 08/31/18 09/01/18 08:40 17:45 00:43 Troponin I 0.06 H 0.07 H 0.08 H 09/01/18 05:30 Troponin I 0.07 H Imaging - Results Chest X-ray: Image Reviewed EKG: Image Reviewed Problem List - Problems (1) Anxiety attack Assessment/Plan: Long hx of anxiety/derpression. Pt has pyshologist (q 2 weeks), psychiartrist and PMD helping her with mental issues. On SSRI. Code(s): F41.0 - PANIC DISORDER [EPISODIC PAROXYSMAL ANXIETY] (2) Vertigo Code(s): R42 - DIZZINESS AND GIDDINESS (3) Atypical chest pain Assessment/Plan: Primarily abdominal. Mutliple CAD risk factors. Will order stress treadmill test. Code(s): R07.89 - OTHER CHEST PAIN (4) Postmenopausal Assessment/Plan: LMP 7 years ago. Code(s): Z78.0 - ASYMPTOMATIC MENOPAUSAL STATE (5) Hyperlipidemia Assessment/Plan: start statin (LDL 121; elevated triglycerides--will repeat fasting). Code(s): E78.5 - HYPERLIPIDEMIA, UNSPECIFIED
[2018-08-30 14:42] LABS: TRIGLYCERIDES 108 mg/dL (0-150)
--- NOTE | 2018-08-30 16:24 | PN ---
Progress Note (short form) - Note Progress Note: SUBJECTIVE: No further episode of palpitations. No chest pain. No cough/sputum/hemoptysis. No fever/chills. OBJECTIVE: Afebrile, Hemodynamically Stable - BP better controlled. Last Vital Signs Temp Pulse Resp BP Pulse Ox 97.7 F 64 16 132/68 98 08/30/18 14:05 08/30/18 14:05 08/30/18 15:00 08/30/18 14:05 08/30/18 04:28 HEENT - Atraumatic, Normocephalic. Heart - S1, S2, SM Lungs - clear to auscultation, no crackles/wheeze. Abdomen - Soft non-tender. Bowel Sounds normal. Extremities - no edema. No calf tenderness. Neuro - AAO x 3. Tone/Power normal all 4 extremities. Laboratory Results - last 24 hr 08/29/18 08/29/18 08/29/18 20:30 20:30 20:30 WBC 9.6 RBC 4.00 Hgb 13.0 Hct 37.3 MCV 93.2 MCH 32.4 MCHC 34.8 RDW 13.3 Plt Count 275 MPV 7.8 Absolute Neuts (auto) 6.2 Neutrophils % 65.0 Lymphocytes % 27.4 D Monocytes % 5.4 Eosinophils % 1.7 Basophils % 0.5 Nucleated RBC % 0 PT with INR 12.40 INR 1.05 PTT (Actin FS) 29.0 D-Dimer Sodium Potassium Chloride Carbon Dioxide Anion Gap BUN Creatinine Creat Clearance w eGFR Random Glucose Hemoglobin A1c % Calcium Phosphorus Magnesium Total Bilirubin AST ALT Alkaline Phosphatase Creatine Kinase Troponin I Total Protein Albumin Triglycerides Cholesterol Total LDL Cholesterol HDL Cholesterol Urine Color Urine Appearance Urine pH Ur Specific [place] Urine Protein Urine Glucose (UA) Urine Ketones Urine Blood Urine Nitrite Urine Bilirubin Urine Urobilinogen Ur Leukocyte Esterase Urine WBC (Auto) Urine RBC (Auto) Ur Epithelial Cells Urine Bacteria 08/29/18 08/29/18 08/29/18 20:30 20:30 20:30 WBC RBC Hgb Hct MCV MCH MCHC RDW Plt Count MPV Absolute Neuts (auto) Neutrophils % Lymphocytes % Monocytes % Eosinophils % Basophils % Nucleated RBC % PT with INR INR PTT (Actin FS) D-Dimer 364 Sodium 139 Potassium 3.7 Chloride 104 Carbon Dioxide 26 Anion Gap 9 BUN 17 Creatinine 0.9 Creat Clearance w eGFR > 60 Random Glucose 149 H Hemoglobin A1c % Calcium 8.2 L Phosphorus Magnesium Total Bilirubin 0.2 AST 10 L ALT 21 Alkaline Phosphatase 114 Creatine Kinase 89 Troponin I 0.04 Total Protein 7.7 Albumin 3.9 Triglycerides 255 H Cholesterol 195 Total LDL Cholesterol 121 H HDL Cholesterol 38 L Urine Color Urine Appearance Urine pH Ur Specific [place] Urine Protein Urine Glucose (UA) Urine Ketones Urine Blood Urine Nitrite Urine Bilirubin Urine Urobilinogen Ur Leukocyte Esterase Urine WBC (Auto) Urine RBC (Auto) Ur Epithelial Cells Urine Bacteria 08/29/18 08/30/18 08/30/18 21:47 04:18 05:15 WBC 9.3 RBC 3.73 Hgb 12.1 Hct 35.0 MCV 93.7 MCH 32.4 MCHC 34.6 RDW 13.7 Plt Count 259 MPV 8.1 Absolute Neuts (auto) 6.0 Neutrophils % 64.7 Lymphocytes % 26.2 Monocytes % 7.5 Eosinophils % 1.2 Basophils % 0.4 Nucleated RBC % 0 PT with INR INR PTT (Actin FS) D-Dimer 383 Sodium Potassium Chloride Carbon Dioxide Anion Gap BUN Creatinine Creat Clearance w eGFR Random Glucose Hemoglobin A1c % Calcium Phosphorus Magnesium Total Bilirubin AST ALT Alkaline Phosphatase Creatine Kinase Troponin I Total Protein Albumin Triglycerides Cholesterol Total LDL Cholesterol HDL Cholesterol Urine Color Straw Urine Appearance Clear Urine pH 7.0 Ur Specific [place] 1.005 L Urine Protein Negative Urine Glucose (UA) Negative Urine Ketones Negative Urine Blood 1+ H Urine Nitrite Negative Urine Bilirubin Negative Urine Urobilinogen Negative Ur Leukocyte Esterase 1+ H Urine WBC (Auto) 5 Urine RBC (Auto) 1 Ur Epithelial Cells Rare Urine Bacteria Rare 08/30/18 08/30/18 08/30/18 05:15 05:15 05:15 WBC RBC Hgb Hct MCV MCH MCHC RDW Plt Count MPV Absolute Neuts (auto) Neutrophils % Lymphocytes % Monocytes % Eosinophils % Basophils % Nucleated RBC % PT with INR 12.90 INR 1.09 PTT (Actin FS) D-Dimer Sodium 141 Potassium 4.2 Chloride 106 Carbon Dioxide 29 Anion Gap 6 L BUN 18 Creatinine 0.6 Creat Clearance w eGFR > 60 Random Glucose 94 Hemoglobin A1c % 5.9 Calcium 8.7 Phosphorus 3.9 Magnesium 2.4 Total Bilirubin 0.3 AST 13 L ALT 17 Alkaline Phosphatase 85 Creatine Kinase Troponin I Total Protein 6.8 Albumin 3.5 Triglycerides 108 Cholesterol Total LDL Cholesterol HDL Cholesterol Urine Color Urine Appearance Urine pH Ur Specific [place] Urine Protein Urine Glucose (UA) Urine Ketones Urine Blood Urine Nitrite Urine Bilirubin Urine Urobilinogen Ur Leukocyte Esterase Urine WBC (Auto) Urine RBC (Auto) Ur Epithelial Cells Urine Bacteria Current Medications Generic Name Dose Route Start Last Admin Trade Name Victor Hugo PRN Reason Stop Dose Admin Atorvastatin Calcium 10 mg 08/30/18 22:00 Lipitor - PO HS JOSE Enoxaparin Sodium 40 mg 08/30/18 10:00 08/30/18 09:46 Lovenox - SQ Not Given DAILY JOSE HCTZ/Losartan Potassium 1 tab 08/30/18 10:00 08/30/18 10:32 Hyzaar - PO 1 tab DAILY JOSE Administration Home Medications Medication Instructions Recorded Citalopram Hydrobromide 20 mg PO DAILY 02/20/15 [Citalopram HBr] Meclizine HCl [Antivert -] 25 mg PO TID #30 tablet 05/21/17 ASSESSMENT/PLAN 57 year old Female with HTN (not on medication), presented with headache, palpitations and bounding pulses, associated SOB, found to be hypertensive with BP 211/104. CXR neg for acute cardiopulmonary findings. CT Head - no acute intra -cranial findings. DDIMER negative. 1. Hypertensive Urgency BP now controlled on HCTZ/Losartan started on admission. Cardiology consulted and recommends Stress Test. Echo requested as patient has Telemetry monitoring ongoing. 2. HLD - elevated TGs and LDL above target. Started on Statin. DVT Px - Lovenox SQ Visit type - Emergency Visit Emergency Visit: Yes ED Registration Date: 08/29/18 Care time: The patient presented to the Emergency Department on the above date and was hospitalized for further evaluation of their emergent condition. - New Patient This patient is new to me today: Yes Date on this admission: 08/30/18 - Critical Care Critical Care patient: No - Discharge Referral Referred to [facility] No
--- NOTE | 2018-08-30 18:28 | EKG ---
Test Reason : Blood Pressure : / mmHG Vent. Rate : 066 BPM Atrial Rate : 066 BPM P-R Int : 146 ms QRS Dur : 078 ms QT Int : 418 ms P-R-T Axes : 032 -19 008 degrees QTc Int : 438 ms NORMAL SINUS RHYTHM NORMAL ECG WHEN COMPARED WITH ECG OF 29-AUG-2018 20:01, VENT. RATE HAS DECREASED BY 44 BPM Confirmed by EMBER DIAMOND MD ([id number]) on 08/30/2018 6:27:57 PM Referred By: Erik PALOMO Confirmed By:EMBER DIAMOND MD
--- NOTE | 2018-08-30 19:06 | EKG ---
Test Reason : Blood Pressure : / mmHG Vent. Rate : 110 BPM Atrial Rate : 110 BPM P-R Int : 158 ms QRS Dur : 080 ms QT Int : 356 ms P-R-T Axes : 049 -03 048 degrees QTc Int : 481 ms SINUS TACHYCARDIA POSSIBLE LEFT ATRIAL ENLARGEMENT NONSPECIFIC ST ABNORMALITY ABNORMAL ECG WHEN COMPARED WITH ECG OF 27-JAN-2018 16:41, VENT. RATE HAS INCREASED BY 44 BPM Confirmed by EMBER DIAMOND MD ([id number]) on 08/30/2018 7:05:52 PM Referred By: Confirmed By:EMBER DIAMOND MD
[2018-08-30] MEDS: ATORVASTATIN CA 10 MG TABLET (FP) PO SCH (21:33)
[2018-08-31] MEDS ORDERED: PT OWN MED DRAWER 7, Y5N ONE (09:04)
[2018-08-31] MEDS: LOSARTAN 50MG/HCTZ 12.5MG 1 TAB (FP) PO SCH (09:17)
[2018-08-31] MEDS: ENOXAPARIN NA (PORCINE) 40 MG/0.4 ML DISP.SYRIN SQ SCH (09:17)
--- NOTE | 2018-08-31 09:45 | PN ---
Progress Note, Physician History of Present Illness: The patient is a 57 year old female (b. [place]) with a PMH of Depression, borderline HTN, who presents with shortness of breath and abdominal pain. 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 Notes she was evaluated by her primary care doctor three months previous and was not started on BP meds but given a BP cuff to measure pressures at home. Patient states she has only measured her pressure on one previous occasion and it was high though she can't recall the number. On attending exam, patient c/o perioral numbness. - Current Medication List Current Medications: Active Medications Atorvastatin Calcium (Lipitor -) 10 mg PO [facility] Last Admin: 08/30/18 21:33 Dose: 10 mg Enoxaparin Sodium (Lovenox -) 40 mg SQ DAILY [facility] Last Admin: 08/31/18 09:17 Dose: 40 mg HCTZ/Losartan Potassium (Hyzaar -) 1 tab PO DAILY [facility] Last Admin: 08/31/18 09:17 Dose: 1 tab - Objective Vital Signs: Vital Signs Temperature 97.8 F 08/31/18 08:17 Pulse Rate 64 08/31/18 08:17 Respiratory Rate 16 08/31/18 08:17 Blood Pressure 122/72 08/31/18 08:17 O2 Sat by Pulse Oximetry (%) 100 08/31/18 08:15 Eyes: Yes: WNL, Conjunctiva Clear, EOM Intact HENT: Yes: WNL, Atraumatic, Normocephalic Neck: Yes: WNL, Supple, Trachea Midline Cardiovascular: Yes: WNL, Regular Rate and Rhythm Respiratory: Yes: WNL, Regular, CTA Bilaterally Gastrointestinal: Yes: WNL, Normal Bowel Sounds Genitourinary: Yes: WNL Musculoskeletal: Yes: WNL Extremities: Yes: WNL Edema: No Integumentary: Yes: WNL Neurological: Yes: WNL, Alert, Oriented ...Motor Strength: WNL Psychiatric: Yes: WNL Labs: CBC, BMP 08/30/18 05:15 08/30/18 05:15 INR, PTT INR 1.09 (0.83-1.09) 08/30/18 05:15 Assessment/Plan 57 year old Female with HTN (not on medication), presented with headache, palpitations and bounding pulses, associated SOB, found to be hypertensive with BP 211/104. CXR neg for acute cardiopulmonary findings. CT Head - no acute intra -cranial findings. DDIMER negative. 1. Hypertensive Urgency BP now controlled on HCTZ/Losartan started on admission. Stress Test pending Echo requested Telemetry monitoring ongoing. add asa 2. HLD - elevated TGs and LDL above target. Started on Statin. DVT Px - Lovenox SQ
[2018-08-31] MEDS: ASPIRIN 81 MG CHEWABLE TABLETS PO SCH (10:49)
--- NOTE | 2018-08-31 10:56 | PN ---
Physical Exam: SUBJECTIVE: Patient seen and examined at bedside today. She denies acute complaints of chest pain, palpitations, shortness of breath, cough, abdominal pain, nausea, vomiting. OBJECTIVE: Vital Signs Period Temp Pulse Resp BP Sys/Saldaña Pulse Ox Last 24 Hr 97.6 F-98.5 F 63-71 16-20 104-142/56-74 98-100 GENERAL: The patient is awake, alert, and fully oriented, in no acute distress. HEAD: Normocephalic, atraumatic EYES: PERRL, extraocular movements intact, sclera anicteric. ENT: Oropharynx clear without exudates, moist mucous membranes. NECK: Trachea midline, full range of motion, supple. LUNGS: Breath sounds equal, clear to auscultation bilaterally, no wheezes, no crackles. HEART: Regular rate and rhythm, S1, S2 without murmur, rub or gallop. ABDOMEN: Soft, nontender, nondistended. Normoactive bowel sounds, no guarding, no rebound tenderness. EXTREMITIES: 2+ radial and dorsalis pedis pulses b/l. No edema bilateral lower extremities NEUROLOGICAL: Cranial nerves II through XII grossly intact. Normal speech. PSYCH: Normal mood, normal affect upon my encounter today. SKIN: Warm, dry. Laboratory Results - last 24 hr 08/30/18 08/31/18 05:15 08:40 Sodium 141 Potassium 4.2 Chloride 106 Carbon Dioxide 29 Anion Gap 6 L BUN 18 Creatinine 0.6 Creat Clearance w eGFR > 60 Random Glucose 94 Calcium 8.7 Phosphorus 3.9 Magnesium 2.4 Total Bilirubin 0.3 AST 13 L ALT 17 Alkaline Phosphatase 85 Troponin I 0.06 H Total Protein 6.8 Albumin 3.5 Triglycerides 108 Active Medications Generic Name Dose Route Start Last Admin Trade Name Freq PRN Reason Stop Dose Admin Aspirin 81 mg 08/31/18 10:00 Asa - PO DAILY JOSE Atorvastatin Calcium 10 mg 08/30/18 22:00 08/30/18 21:33 Lipitor - PO 10 mg HS JOSE Administration Enoxaparin Sodium 40 mg 08/30/18 10:00 08/31/18 09:17 Lovenox - SQ 40 mg DAILY JOSE Administration HCTZ/Losartan Potassium 1 tab 08/30/18 10:00 08/31/18 09:17 Hyzaar - PO 1 tab DAILY JOSE Administration ASSESSMENT/PLAN: Patient is a 57 year old female with history of hypertension presented with complaint of palpitations, and elevated blood pressure. Hypertensive urgency -BP controlled with Losartan- Hydrochlorothiazide (50mg- 12.5mg) PO daily -Cardiology consult (Dr. Otero) appreciated. -Aspirin 81mg PO daily -Monitor vital signs closely -Telemetry monitoring -Cardiac ECHO shows LV size, function normal with EF 65-70%. Grade I diastolic dysfunction noted. Mild TR, trace HI. -Treadmill stress test today NSTEMI -Troponin 0.06 -> 0.07 -Discussed with cardiology. Begin Lovenox 1mg/ kg Q12H -Follow troponins Hyperlipidemia -Atorvastatin 10mg PO HS Prophylaxis -Lovenox 60mg BID subq FEN -No IV fluids -Follow CMP -Sodium controlled diet Disposition -Telemetry monitoring. Visit type - Emergency Visit Emergency Visit: Yes ED Registration Date: 08/29/18 Care time: The patient presented to the Emergency Department on the above date and was hospitalized for further evaluation of their emergent condition. - New Patient This patient is new to me today: Yes Date on this admission: 08/31/18 - Critical Care Critical Care patient: No - Discharge Referral Referred to [facility] Med P.C.: No
--- NOTE | 2018-08-31 13:54 | ECHO ---
Name: RODRIGUEZ CHRISTIAN Exam:Adult Echocardiogram Study Date: 08/31/2018 09:47 AM Age: 57 yrs Reason For Study: HYPERTENSIVE URGENCY SYSTOLIC MURMUR Height: 61 in Weight: 136 lb BSA: 1.6 m2 MMode/2D Measurements & Calculations IVSd: 0.73 cm Ao root diam: 2.6 cm LVIDd: 4.4 cm LA dimension: 3.5 cm LVIDs: 2.8 cm LVPWd: 0.77 cm EDV(Teich): 89.0 ml ESV(Teich): 29.0 ml Doppler Measurements & Calculations MV E max zhane: 66.6 cm/sec TR max zhane: 173.5 cm/sec MV A max zhane: 72.6 cm/sec TR max P.1 mmHg MV E/A: 0.92 MV dec time: 0.20 sec PI end-d zhane: 103.7 cm/sec Med Peak E' Zhane: 5.3 cm/sec Med E/e': 12.7 Lat Peak E' Zhane: 6.1 cm/sec Lat E/e': 10.9 Procedure A complete two-dimensional transthoracic echocardiogram was performed (2D, M-mode, Doppler and color flow Doppler). Left Ventricle The left ventricle is normal in size. Left ventricular systolic function is normal. Ejection Fraction = 65- 70%. Grade I diastolic dysfunction, (abnormal relaxation pattern). Ratio E/E'= 12. No regional wall m otion abnormalities noted. Right Ventricle The right ventricle is normal size. The right ventricular systolic function is normal. RV systolic TD I is 11 cm/s. Atria The left atrial size is normal. Right atrial size is normal. Mitral Valve The mitral valve is normal in structure and function. There is no mitral regurgitation noted. Tricuspid Valve The tricuspid valve is normal in structure and function. There is mild tricuspid regurgitation. Right ventricular systolic pressure is normal. Aortic Valve The aortic valve is normal in structure and function. No aortic regurgitation is present. Pulmonic Valve The pulmonic valve is not well visualized. Trace pulmonic valvular regurgitation. Great Vessels The aortic root is normal size. Pericardium/Pleura There is no pericardial effusion. Interpretation Summary The left ventricle is normal in size. Left ventricular systolic function is normal. No regional wall motion abnormalities noted. Ejection Fraction = 65-70%. Grade I diastolic dysfunction, (abnormal relaxation pattern). Ratio E/E'= 12 c/w normal filling pressure The right ventricular systolic function is normal. The left atrial size is normal. Right atrial size is normal. There is mild tricuspid regurgitation. Right ventricular systolic pressure is normal. Trace pulmonic valvular regurgitation. There is no pericardial effusion. Previous study is not available for comparison Alex Johnson MD 08/31/2018 01:53 PM
--- NOTE | 2018-08-31 14:38 | PN ---
Teaching Attending Note Name of Resident: Joesph Renteria ATTENDING PHYSICIAN STATEMENT I saw and evaluated the patient. I reviewed the resident's note and discussed the case with the resident. I agree with the resident's findings and plan as documented. SUBJECTIVE: No further episode of palpitations/headache. No chest pain. No cough/sputum/ hemoptysis. No fever/chills. OBJECTIVE: Afebrile, Hemodynamically Stable - BP better controlled. Last Vital Signs Temp Pulse Resp BP Pulse Ox 97.8 F 64 16 122/72 100 08/31/18 08:17 08/31/18 08:17 08/31/18 08:17 08/31/18 08:17 08/31/18 08:15 HEENT - Atraumatic, Normocephalic. Heart - S1, S2, SM Lungs - clear to auscultation, no crackles/wheeze. Abdomen - Soft non-tender. Bowel Sounds normal. Extremities - no LE edema. No calf tenderness. Neuro - AAO x 3. Tone/Power normal all 4 extremities. Laboratory Results - last 24 hr 08/30/18 08/31/18 05:15 08:40 Sodium 141 Potassium 4.2 Chloride 106 Carbon Dioxide 29 Anion Gap 6 L BUN 18 Creatinine 0.6 Creat Clearance w eGFR > 60 Random Glucose 94 Calcium 8.7 Phosphorus 3.9 Magnesium 2.4 Total Bilirubin 0.3 AST 13 L ALT 17 Alkaline Phosphatase 85 Troponin I 0.06 H Total Protein 6.8 Albumin 3.5 Triglycerides 108 Current Medications Generic Name Dose Route Start Last Admin Trade Name Freq PRN Reason Stop Dose Admin Aspirin 81 mg 08/31/18 10:00 08/31/18 10:49 Asa - PO 81 mg DAILY JOSE Administration Atorvastatin Calcium 10 mg 08/30/18 22:00 08/30/18 21:33 Lipitor - PO 10 mg HS JOSE Administration Enoxaparin Sodium 40 mg 08/30/18 10:00 08/31/18 09:17 Lovenox - SQ 40 mg DAILY JOSE Administration HCTZ/Losartan Potassium 1 tab 08/30/18 10:00 08/31/18 09:17 Hyzaar - PO 1 tab DAILY JOSE Administration ASSESSMENT/PLAN 57 year old Female with HTN (not on medication), presented with headache, palpitations and bounding pulses, associated SOB, found to be hypertensive with BP 211/104. CXR neg for acute cardiopulmonary findings. CT Head - no acute intra -cranial findings. DDIMER negative. 1. Hypertensive Urgency BP now controlled on HCTZ/Losartan (started on this admission). Cardiology consulted and recommends Stress Test, scheduled 08/31. Echo - normal, EF 65% Telemetry monitoring ongoing. Repeat TnI 0.06 - for further Cardiology recommendations after Stress Test. 2. HLD - elevated TGs and LDL above target. Started on Statin. DVT Px - Lovenox SQ
--- NOTE | 2018-08-31 16:00 | TRE ---
Protocol Name : LEONIDAS Max Work Load (METS*10) : 58 Time In Exercise Phase : 00:04:00 Max. Systolic BP : 180 mmHg Max Diastolic BP : 70 mmHg Max Heart Rate : 157 BPM Max Predicted Heart Rate : 161 BPM Attending Physician : DR. DIAMOND Reason For Termination : Target Heart Rate Achieved Reason for Test : ATYPICAL CHEST PAIN, CAD RISKS Stress Protocol : LEONIDAS Rest HR : 94 BPM PeakEx METs : 5.8 METS Arrhythmias : No Arrhythmias Resting ECG : Normal Recovery ECG Response (OLD) : Overall Impression : Normal stress test Chest Pain : No Chest Pain HR Response To Exercise : Normal Overall HR Response To Exercise BP Response To Exercise : Normal Resting BP with Appropriate Response Functional Capacity : Normal Diagnosis : 1. NEGATIVE STRESS TEST 2. APPROPRIATE BLOOD PRESSURE RESPONSE 3. REDUCED EXERCISE TOLERANCE AND CAPACITY. PATIENT EXERCISED 4 MIN INTO STAGE 2 LEONIDAS PROTOCOL AND ACHIEVED 97% MPTHR 4. NO SIGNIFICANT ECG ABNORMALITIES ARE SEEN Confirmed by EMBER DIAMOND MD ([id number]) on 08/31/2018 3:59:35 PM
[2018-08-31] MEDS: CITALOPRAM HYDROBROMIDE 20 MG TABLET (FP) PO SCH (16:56)
[2018-08-31] MEDS: ATORVASTATIN CA 10 MG TABLET (FP) PO SCH (22:24)
[2018-08-31] MEDS: ENOXAPARIN NA (PORCINE) 60 MG/0.6 ML DISP.SYRIN SQ SCH (22:25)
[2018-09-01] MEDS: ENOXAPARIN NA (PORCINE) 60 MG/0.6 ML DISP.SYRIN SQ SCH (09:16)
[2018-09-01] MEDS: LOSARTAN 50MG/HCTZ 12.5MG 1 TAB (FP) PO SCH (09:17)
[2018-09-01] MEDS: ASPIRIN 81 MG CHEWABLE TABLETS PO SCH (09:17)
[2018-09-01] MEDS: CITALOPRAM HYDROBROMIDE 20 MG TABLET (FP) PO SCH (09:17)
--- NOTE | 2018-09-01 12:52 | PN ---
Progress Note, Physician Chief Complaint: Pt A&Ox3; happy one moment to know that her stress test was negative for ischemia, but, a few minutes laters, when talking about the responsibility she feels to her daughter and herself to work hard so they can eat and buy essentials, she breaks down crying. History of Present Illness: The patient is a 57 year old female (b. [place]) with a PMH of Depression, "borderline: HTN, hyperlipidemia (not on medication on admission) who presents with shortness of breath and abdominal pain. 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 Notes she was evaluated by her primary care doctor three months previous and was not started on BP meds but given a BP cuff to measure pressures at home. Patient states she has only measured her pressure on one previous occasion and it was high though she can't recall the number. On attending exam, patient c/o perioral numbness. - Current Medication List Current Medications: Active Medications Aspirin (Asa -) 81 mg PO DAILY [facility] Last Admin: 09/01/18 09:17 Dose: 81 mg Atorvastatin Calcium (Lipitor -) 10 mg PO HS [facility] Last Admin: 08/31/18 22:24 Dose: 10 mg Citalopram Hydrobromide (Celexa -) 20 mg PO DAILY [facility] Last Admin: 09/01/18 09:17 Dose: 20 mg Enoxaparin Sodium (Lovenox -) 60 mg SQ BID [facility] Last Admin: 09/01/18 09:16 Dose: 60 mg HCTZ/Losartan Potassium (Hyzaar -) 1 tab PO DAILY [facility] Last Admin: 09/01/18 09:17 Dose: 1 tab - Objective Vital Signs: Vital Signs Temperature 97.5 F L 09/01/18 08:22 Pulse Rate 67 09/01/18 08:22 Respiratory Rate 20 09/01/18 08:22 Blood Pressure 124/63 09/01/18 08:22 O2 Sat by Pulse Oximetry (%) 99 09/01/18 08:00 Labs: CBC, BMP 08/30/18 05:15 08/30/18 05:15 INR, PTT INR 1.09 (0.83-1.09) 08/30/18 05:15 Problem List - Problems (1) Anxiety attack Assessment/Plan: Long hx of anxiety/derpression. Pt has pyshologist (q 2 weeks), psychiartrist and PMD helping her with mental issues. On SSRI. Code(s): F41.0 - PANIC DISORDER [EPISODIC PAROXYSMAL ANXIETY] (2) Vertigo Code(s): R42 - DIZZINESS AND GIDDINESS (3) Atypical chest pain Assessment/Plan: Stress teadmill MIBI: no myocardial ischemia or arrhythmias; relatively poor exercise functional capacity. Pt says she sometimes walks a lot, but admits this occurs only once or twice a week. TNI 0.04--> 0.08-->0.07 (CK negative x 2). Additional factors beside coronary disease that may explain the elevation in TNI include CHF and depresson (the latter, when severe, can be associated with Takatsubo's syndrome). ECHO Normal LEF, early diatolic dysfunction. EKG: normal sinus rhythm; normal study. Recommend" From a cardiac standpoint, pt may be followed as an outpatient. Aggressive lipid control with diet, increase in exercise, and statin. Consider CT chest for coronary calcim score. Treatment of depression is essential (pt cries frequently, especially when describing the stress she feels in caring financially and emotionally for her daughter and herself). Pt was made of aware of the importance of proceeding to the ER should she have chest discomfort of other issues (e.g. dyspnea) she cannot easily explain. Close f/u with PMD, psychologist/psychiatrist. Code(s): R07.89 - OTHER CHEST PAIN (4) Postmenopausal Code(s): Z78.0 - ASYMPTOMATIC MENOPAUSAL STATE (5) Hyperlipidemia Code(s): E78.5 - HYPERLIPIDEMIA, UNSPECIFIED (6) Elevated troponin Assessment/Plan: Please see under "atypical chest pain". Code(s): R74.8 - ABNORMAL LEVELS OF OTHER SERUM ENZYMES
--- NOTE | 2018-09-01 14:03 | PN ---
Teaching Attending Note Name of Resident: Joesph Renteria ATTENDING PHYSICIAN STATEMENT I saw and evaluated the patient. I reviewed the resident's note and discussed the case with the resident. I agree with the resident's findings and plan as documented. SUBJECTIVE: Patient has no complaints. OBJECTIVE: Vital Signs Period Temp Pulse Resp BP Sys/Saldaña Pulse Ox Last 24 Hr 97.5 F-98.3 F 58-86 18-20 92-127/50-69 99-100 HEART: S1S2, RRR LUNGS: Clear ABDOMEN: Soft, non-tender, non-distended, normal BS EXTREMITIES: No edema Laboratory Results - last 24 hr 08/31/18 08/31/18 09/01/18 08:40 17:45 00:43 Creatine Kinase 73 72 Troponin I 0.06 H 0.07 H 0.08 H 09/01/18 05:30 Creatine Kinase 55 Troponin I 0.07 H Current Medications Generic Name Dose Route Start Last Admin Trade Name Freq PRN Reason Stop Dose Admin Aspirin 81 mg 08/31/18 10:00 09/01/18 09:17 Asa - PO 81 mg DAILY JOSE Administration Atorvastatin Calcium 10 mg 08/30/18 22:00 08/31/18 22:24 Lipitor - PO 10 mg HS JOSE Administration Citalopram Hydrobromide 20 mg 08/31/18 16:15 09/01/18 09:17 Celexa - PO 20 mg DAILY JOSE Administration HCTZ/Losartan Potassium 1 tab 08/30/18 10:00 09/01/18 09:17 Hyzaar - PO 1 tab DAILY JOSE Administration ASSESSMENT AND PLAN: This is a 57 year old woman with a history of HTN who presented to the ED with headache, palpitations, SOB. 1. Hypertensive urgency - Resolved 2. HTN, uncontrolled - Continue Hyzaar - Echo shows normal LV, LVEF 65-70%, grade I diastolic dysfunction, normal RV , mild TR, trace PI - Stress test negative 3. Hyperlipidemia - Continue Lipitor 4. Depression - Continue Celexa 5. Disposition - Ok for discharge home today
--- NOTE | 2018-09-01 14:10 | DS ---
Physical Exam: SUBJECTIVE: Patient seen and examined at bedside today. She denies acute complaints of chest pain, palpitations, shortness of breath, cough, abdominal pain, nausea, vomiting. OBJECTIVE: Vital Signs Period Temp Pulse Resp BP Sys/Saldaña Pulse Ox Last 24 Hr 97.5 F-98.0 F 58-70 18-20 109-127/50-69 99-100 PHYSICAL EXAM GENERAL: The patient is awake, alert, and fully oriented, in no acute distress. HEAD: Normocephalic, atraumatic EYES: PERRL, extraocular movements intact, sclera anicteric. ENT: Oropharynx clear without exudates, moist mucous membranes. NECK: Trachea midline, full range of motion, supple. LUNGS: Breath sounds equal, clear to auscultation bilaterally, no wheezes, no crackles. HEART: Regular rate and rhythm, S1, S2 without murmur, rub or gallop. ABDOMEN: Soft, nontender, nondistended. Normoactive bowel sounds, no guarding, no rebound tenderness. EXTREMITIES: 2+ radial and dorsalis pedis pulses b/l. No edema bilateral lower extremities NEUROLOGICAL: Cranial nerves II through XII grossly intact. Normal speech. PSYCH: Normal mood, normal affect upon my encounter today. SKIN: Warm, dry. LABS Laboratory Results - last 24 hr 08/31/18 08/31/18 09/01/18 08:40 17:45 00:43 Creatine Kinase 73 72 Troponin I 0.06 H 0.07 H 0.08 H 09/01/18 05:30 Creatine Kinase 55 Troponin I 0.07 H HOSPITAL COURSE: Date of Admission:08/29/18 Date of Discharge: 09/01/18 Patient is a 57 year old female with history of hypertension, hyperlipidemia, depression, presented with complaint of palpitations, and elevated blood pressure. Troponin upon admission was 0.04. She was started on Losartan- Hydrochlorothiazide. Cardiac ECHO shows LV size, function normal with EF 65-70% . Grade I diastolic dysfunction noted. Mild TR, trace MI. She was evaluated by truck driver helper who recommended stress test. Exercise stress test was overall negative with appropriate blood pressure response. No significant ECG abnormalities noted. Patient was noted to have troponin elevation peaking at 0.08, however with negative CK. Cardiology consult discussed that patient was tearful upon encounter and troponin increase likely due to Takatsubo's cardiomyopathy. Patient was discharged home with Aspirin, Atorvastatin, and Losartan-HCTZ. Discharged to follow up with primary care physician, and truck driver helper. Minutes to complete discharge: 35 Discharge Summary Reason For Visit: HYPERTENSION Current Active Problems Atypical chest pain (Acute) Elevated troponin (Acute) Hyperlipidemia (Acute) Postmenopausal (Acute) Condition: Stable - Instructions Diet, Activity, Other Instructions: You were admitted to the hospital due to elevated blood pressure and chest palpitations. You were evaluated by the truck driver helper, and had stress test to evaluate your heart function. You are being discharged home You will begin taking the following medications: Aspirin 81mg daily Atorvastatin 10mg in the evenings for your cholesterol Losartan-Hydrochlorothiazide (50-12.5mg) daily for your blood pressure. Continue taking your home Citalopram as directed. Continue measuring your blood pressure at home. Record your readings, and bring them with you to your primary care physician's appointment. Follow up referrals: Follow up with your primary care physician within two - three days after discharge. A referral to [facility] has been provided. Follow up with truck driver helper within one -two weeks after discharge. Return to the nearest emergency department if you experience any worsening symptoms, fevers, chills, shortness of breath, chest pain, palpitations, abdominal pain, nausea, vomiting. Referrals: Drew Frausto MD [Staff Physician] - Santy Otero MD [Staff Physician] - Disposition: HOME - Home Medications Comprehensive Discharge Medication List: Ambulatory Orders Citalopram Hydrobromide [Citalopram HBr] 20 mg PO DAILY 02/20/15 Aspirin [ASA -] 81 mg PO DAILY 28 Days #28 tab.chew 08/31/18 Atorvastatin Ca [Lipitor] 10 mg PO HS 28 Days #28 tablet 08/31/18 Losartan 50Mg/Hctz 12.5MG [Hyzaar -] 1 tab PO DAILY 28 Days #28 tablet 08/31/18 This patient is new to me today: No Emergency Visit: Yes ED Registration Date: 08/29/18 Care time: The patient presented to the Emergency Department on the above date and was hospitalized for further evaluation of their emergent condition. Critical Care patient: No - Discharge Referral Referred to [facility] Med P.C.: No
[2018-09-01 14:22] VITALS: TEMP 98.1
[2018-09-01 17:22] VITALS: BP 117/59; PULSE 62
== END 2018-09-01 18:45 | disposition home or self-care (01) ==
LOC: JER 19:35 → JERBED 21:14 → J4W 08-30 06:35
PROVIDERS: ADMIT Internal Medicine; ATTEND Internal Medicine
PROC: 3E0337Z Introduction of Electrolytic and Water Balance Substance into Peripheral Vein, Percutaneous Approach (ICD-10-PCS; principal; 2018-08-29)
PROC: 3E013GC Introduction of Other Therapeutic Substance into Subcutaneous Tissue, Percutaneous Approach (ICD-10-PCS; 2018-08-29)
DX: I16.0 Hypertensive urgency (principal); R06.02 Shortness of breath; F32.9 Major depressive disorder, single episode, unspecified; R00.0 Tachycardia, unspecified; R00.2 Palpitations; F41.0 Panic disorder [episodic paroxysmal anxiety]; R42 Dizziness and giddiness; R07.89 Other chest pain; Z78.0 Asymptomatic menopausal state; E78.5 Hyperlipidemia, unspecified
CPT/HCPCS: 36415; 70450-TC; 71045-TC-FY; 80053; 81003; 81015; 82465; 82550; 83036; 83718; 83721; 83735; 84100; 84478; 84484; 85025; 85379; 85610; 85730; 93005; 93010; 93017; 93018; 93306-TC; 99283-25; G0378

== ENCOUNTER 2019-08-01 17:00 | Emergency (ER) | payer OTHER ==
[2019-08-01 18:00] VITALS: BP 162/61; PULSE 84; TEMP 98.5; BMI 25.4
--- NOTE | 2019-08-01 18:52 | PDOC ---
History of Present Illness - General Chief Complaint: Blood Pressure Problem Stated Complaint: BLOOD PRESSURE PROBLEM Time Seen by Provider: 08/01/19 18:36 - History of Present Illness Initial Comments: 08/01/19 18:44 Patient is a 58 year old female with history of HTN, HLD, anxiety depression, c/ o blood pressure is elevated. Patients states she came home from work and took all her meds consecutively, usually takes meds at 12 midday but then took it at 3 pm today. States she then panic about taking them and took her b/p and it was elevated. Patient is on citalopram, losartan/HCTZ and Lipitor. States was shaking and having some SOB, hyperventilating at the time however, currently feels fine. Denies chest pain, SOB, dizziness. PMD: Dr. Montoya PMHX: as above PSOCHX: neg cig, drug, etoh ALL: NKDA GENERAL/CONSTITUTIONAL: [No fever or chills. No weakness. No weight change.] HEAD, EYES, EARS, NOSE AND THROAT: [No change in vision. No ear pain or discharge. No sore throat.] CARDIOVASCULAR: [No chest pain or shortness of breath.] RESPIRATORY: [No cough, wheezing, or hemoptysis.] GASTROINTESTINAL: [No nausea, vomiting, diarrhea or constipation. No rectal bleeding.] GENITOURINARY: [No dysuria, frequency, or change in urination.] MUSCULOSKELETAL: [No joint or muscle swelling or pain. No neck or back pain.] SKIN AND BREASTS: [No rash or easy bruising.] NEUROLOGIC: [No headache, vertigo, loss of consciousness, or loss of sensation.] PSYCHIATRIC: [(+)depression or anxiety.] ENDOCRINE: [No increased thirst. No abnormal weight change.] HEMATOLOGIC/LYMPHATIC: [No anemia, easy bleeding, or history of blood clots.] ALLERGIC/IMMUNOLOGIC: [No hives or skin allergy. No latex allergy.] GENERAL: [The patient is awake, alert, and fully oriented, in no acute distress. ] HEAD: [Normal with no signs of trauma.] EYES: [Pupils equal, round and reactive to light, extraocular movements intact, sclera anicteric, conjunctiva clear.] ENT: [Ears normal, nares patent, oropharynx clear without exudates. Moist mucous membranes.] NECK: [Normal range of motion, supple without lymphadenopathy, JVD, or masses.] LUNGS: [Breath sounds equal, clear to auscultation bilaterally. No wheezes, and no crackles.] HEART: [Regular rate and rhythm, normal S1 and S2 without murmur, rub.] ABDOMEN: [Soft, nontender, normoactive bowel sounds. No guarding, no rebound. No masses.] EXTREMITIES: [Normal range of motion, no edema. No clubbing or cyanosis. No cords, erythema, or tenderness.] NEUROLOGICAL: [Cranial nerves II through XII grossly intact. Normal speech, normal gait.] PSYCH: [Normal mood, normal affect.] SKIN: [Warm, Dry, normal turgor, no rashes or lesions noted.] Past History - Past Medical History Allergies/Adverse Reactions: Allergies Allergy/AdvReac Type Severity Reaction Status Date / Time No Known Allergies Allergy Verified 08/01/19 17:21 Home Medications: Ambulatory Orders Citalopram Hydrobromide [Citalopram HBr] 20 mg PO DAILY 02/20/15 Aspirin [ASA -] 81 mg PO DAILY #30 tab.chew 09/01/18 Atorvastatin Ca [Lipitor] 10 mg PO HS #30 tablet 09/01/18 Losartan 50Mg/Hctz 12.5MG [Hyzaar -] 1 tab PO DAILY #30 tablet 09/01/18 CVA: No COPD: No HTN: Yes Psychiatric Problems: Yes (depression) - Immunization History Immunization Up to Date: Yes - Psycho Social/Smoking Cessation Hx Smoking History: Never smoked Have you smoked in the past 12 months: No Information on smoking cessation initiated: No Hx Alcohol Use: No Drug/Substance Use Hx: No Substance Use Type: None *Physical Exam - Vital Signs Last Vital Signs Temp Pulse Resp BP Pulse Ox 98.5 F 84 16 162/61 99 08/01/19 17:00 08/01/19 17:00 08/01/19 17:00 08/01/19 17:00 08/01/19 17:00 Medical Decision Making - Medical Decision Making 08/01/19 18:44 Patient is a 58 year old female with history of HTN, HLD, anxiety depression, c/ o blood pressure is elevated. Patients states she came home from work and took all her meds consecutively, usually takes meds at 12 midday but then took it at 3 pm today. States she then panic about taking them and took her b/p and it was elevated. Patient is on citalopram, losartan/HCTZ and Lipitor. States was shaking and having some SOB, hyperventilating at the time however, currently feels fine. Denies chest pain, SOB, dizziness. Patient will normal vitals had a panic attack. No intervention at this time. Patient already had her medication and is sufficiently calm. Review of the chart shows patient had a normal stress test and normal EKG in August 2018 EKG: SR at rate 75, LAD, no ST-T wave changes unchanged from prior I discussed the physical exam findings, ancillary test results and final diagnoses with the patient. I answered all of the patient's questions. The patient was satisfied with the care received and felt comfortable with the discharge plan and treatment plan. The Patient agrees to follow up with the primary care physician within 24-72 hours. Discharge - Discharge Information Problems reviewed: Yes Clinical Impression/Diagnosis: Anxiety attack, Transient elevated blood pressure Condition: Stable Disposition: HOME - Follow up/Referral - Patient Discharge Instructions Patient Printed Discharge Instructions: DI for High Blood Pressure, DI for Anxiety -- Adult Additional Instructions: Your Discharge Instructions: You must call primary care physician within 24 hours to arrange follow-up. Return to the Emergency Department with any new, persistent or worsening symptoms, for fever, chills, SOB, dizziness or any other concerning changes that may occur. - Post Discharge Activity
--- NOTE | 2019-08-02 13:33 | EKG ---
Test Reason : Blood Pressure : / mmHG Vent. Rate : 075 BPM Atrial Rate : 075 BPM P-R Int : 154 ms QRS Dur : 092 ms QT Int : 404 ms P-R-T Axes : 033 -15 029 degrees QTc Int : 451 ms NORMAL SINUS RHYTHM NORMAL ECG WHEN COMPARED WITH ECG OF 30-AUG-2018 13:31, NO SIGNIFICANT CHANGE WAS FOUND Confirmed by EMBER DIAMOND MD ([id number]) on 08/02/2019 1:32:56 PM Referred By: Confirmed By:EMBER DIAMOND MD
== END 2019-08-01 19:24 | disposition home or self-care (01) ==
LOC: EDBD 17:00 → JER 17:00
DX: I10 Essential (primary) hypertension (principal); F41.0 Panic disorder [episodic paroxysmal anxiety]; F41.8 Other specified anxiety disorders; F32.9 Major depressive disorder, single episode, unspecified; E78.5 Hyperlipidemia, unspecified
CPT/HCPCS: 93005; 93010; 99281-25

== ENCOUNTER 2021-10-16 02:50 | Observation (INO) | payer OTHER ==
[2021-10-16 03:07] VITALS: BMI 25.4
[2021-10-16] MEDS ORDERED: SODIUM CHLORIDE 0.9% 1000 ML INFUS.BAG IV ONE (03:14)
[2021-10-16 04:09] LABS: BASO % 0.7 % (0-2.0); EOS % 2.8 % (0-4.5); HEMATOCRIT 34.2 % (32.4-45.2); HEMOGLOBIN 12.1 GM/dL (10.7-15.3); LYMPH % 31.7 % (8-40); MCH 33.2 pg (25.7-33.7); MCHC 35.5 g/dl (32.0-36.0); MEAN CELL VOLUME 93.4 fl (80-96); MEAN PLT VOLUME 7.9 fl (7.5-11.1); MONO % 6.7 % (3.8-10.2); NEUT % 58.1 % (42.8-82.8); PLATELET COUNT 248 10^3/uL (134-434); RBC 3.66 M/mm3 (3.60-5.2); RDW 13.3 % (11.6-15.6); WHITE BLOOD COUNT 9.2 K/mm3 (4.0-10.0)
[2021-10-16 04:12] LABS: EPI CELLS 33 /uL (0-25.1); HYALINE CASTS 2 /uL (0-3.1); URINE APPEARANCE CLEAR; URINE BACTERIA 559 /uL (0-1359); URINE BILIRUBIN NEGATIVE (NEGATIVE); URINE COLOR YELLOW; URINE GLUCOSE (UA) NEGATIVE (NEGATIVE); URINE KETONE NEGATIVE (NEGATIVE); URINE LEUK ESTERASE 1+ (NEGATIVE); URINE NITRITE NEGATIVE (NEGATIVE); URINE PROTEIN NEGATIVE (NEGATIVE); URINE RBC 12 /uL (0-23.9); URINE UROBILINOGEN 0.2 mg/dL (0.2-1.0); URINE WBC 52 /uL (0-25.8)
[2021-10-16 04:31] LABS: CALCIUM 8.6 mg/dL (8.5-10.1)
[2021-10-16 04:32] LABS: ALBUMIN 3.7 g/dl (3.4-5.0); BLOOD UREA NITROGEN 26.5 mg/dL (7-18)
[2021-10-16 04:35] LABS: CREATININE 0.7 mg/dL (0.55-1.3)
[2021-10-16 04:36] LABS: BILIRUBIN,TOTAL 0.2 mg/dL (0.2-1); TOT PROT 7.4 g/dl (6.4-8.2)
[2021-10-16] MEDS ORDERED: CEFTRIAXONE 1,000 MG in DEXTROSE 5%-WATER - 50 ML IVPB ONE (06:19)
[2021-10-16] MEDS ORDERED: CEFTRIAXONE 1 GM/50 ML BAG ONE (06:37)
[2021-10-16] MEDS ORDERED: ACETAMINOPHEN 325 MG TABLET (FP) PO PRN (09:00)
[2021-10-16 09:12] VITALS: TEMP 98.5
[2021-10-16] MEDS ORDERED: LOSARTAN POTASSIUM 50 MG TABLET ONE (09:33)
[2021-10-16] MEDS ORDERED: ENOXAPARIN NA (PORCINE) 40 MG/0.4 ML DISP.SYRIN SQ ONE (09:33)
[2021-10-16] MEDS ORDERED: CITALOPRAM HYDROBROMIDE 20 MG TABLET PO SCH (10:00)
[2021-10-16] MEDS ORDERED: HYDROCHLOROTHIAZIDE 12.5 MG CAPSULE (FP) PO SCH (10:00)
[2021-10-16] MEDS ORDERED: ENOXAPARIN NA (PORCINE) 40 MG/0.4 ML DISP.SYRIN SQ SCH (10:00)
[2021-10-16] MEDS ORDERED: LOSARTAN POTASSIUM 50 MG TABLET PO SCH (10:00)
[2021-10-16 17:06] VITALS: BP 124/51; PULSE 60
[2021-10-16] MEDS ORDERED: ATORVASTATIN CA 10 MG TABLET (FP) PO SCH (22:00)
[2021-10-17] MEDS ORDERED: CEFTRIAXONE 1 GM in DEXTROSE 5%-WATER - 50 ML IVPB SCH (10:00)
== END 2021-10-16 17:18 | disposition home or self-care (01) ==
LOC: JER 02:50 → JERBED 05:29
PROVIDERS: ADMIT Hospitalist; ATTEND Internal Medicine
PROC: 3E03329 Introduction of Other Anti-infective into Peripheral Vein, Percutaneous Approach (ICD-10-PCS; principal; 2021-10-16)
PROC: 3E023GC Introduction of Other Therapeutic Substance into Muscle, Percutaneous Approach (ICD-10-PCS; 2021-10-16)
PROC: 3E0337Z Introduction of Electrolytic and Water Balance Substance into Peripheral Vein, Percutaneous Approach (ICD-10-PCS; 2021-10-16)
DX: N39.0 Urinary tract infection, site not specified (principal); R10.30 Lower abdominal pain, unspecified; I10 Essential (primary) hypertension; E78.5 Hyperlipidemia, unspecified; F41.8 Other specified anxiety disorders; R42 Dizziness and giddiness; Z29.9 Encounter for prophylactic measures, unspecified
CPT/HCPCS: 36415; 71046-TC-FY; 80053; 80061; 81003; 83036; 84132; 84439; 84443; 84484; 85025; 87086; 87186; 93005; 93010; 96365; 96372; 99285-25; C9803; G0378; U0003; U0005

== ENCOUNTER 2022-02-09 19:03 | Observation (INO) | payer OTHER ==
[2022-02-09 21:01] LABS: BASO % 0.2 % (0-2.0); EOS % 0.1 % (0-4.5); HEMATOCRIT 34.3 % (32.4-45.2); HEMOGLOBIN 12.1 GM/dL (10.7-15.3); LYMPH % 11.6 % (8-40); MCH 32.3 pg (25.7-33.7); MCHC 35.2 g/dl (32.0-36.0); MEAN CELL VOLUME 91.8 fl (80-96); MONO % 3.1 % (3.8-10.2); PLATELET COUNT 259 10^3/uL (134-434); RBC 3.73 M/mm3 (3.60-5.2); RDW 13.1 % (11.6-15.6); WHITE BLOOD COUNT 10.4 K/mm3 (4.0-10.0)
[2022-02-09 21:24] LABS: CALCIUM 8.3 mg/dL (8.5-10.1)
[2022-02-09 21:25] LABS: ALBUMIN 3.8 g/dl (3.4-5.0); BLOOD UREA NITROGEN 19.5 mg/dL (7-18); MAGNESIUM 2.1 mg/dL (1.8-2.4)
[2022-02-09 21:28] LABS: CREATININE 0.7 mg/dL (0.55-1.3)
[2022-02-09 21:29] LABS: BILIRUBIN,TOTAL 0.3 mg/dL (0.2-1); TOT PROT 7.5 g/dl (6.4-8.2)
[2022-02-09 21:46] LABS: EPI CELLS 2 /uL (0-25.1); HYALINE CASTS 0 /uL (0-3.1); PH,URINE 6.5 (5.0-8.0); URINE APPEARANCE CLEAR; URINE BACTERIA 7 /uL (0-1359); URINE BILIRUBIN NEGATIVE (NEGATIVE); URINE COLOR YELLOW; URINE GLUCOSE (UA) NEGATIVE (NEGATIVE); URINE KETONE NEGATIVE (NEGATIVE); URINE LEUK ESTERASE NEGATIVE (NEGATIVE); URINE NITRITE NEGATIVE (NEGATIVE); URINE PROTEIN NEGATIVE (NEGATIVE); URINE RBC 2 /uL (0-23.9); URINE UROBILINOGEN 0.2 mg/dL (0.2-1.0); URINE WBC 1 /uL (0-25.8)
[2022-02-09] MEDS ORDERED: POTASSIUM CHLORIDE TABS 20 MEQ TABLET.ER (FP) PO ONE ×2 (22:07→22:24)
[2022-02-09] MEDS ORDERED: ASPIRIN 81 MG CHEWABLE TABLETS PO ONE (22:10)
[2022-02-09] MEDS ORDERED: ASPIRIN 81 MG CHEWABLE TABLETS ONE (22:24)
[2022-02-10] MEDS ORDERED: POTASSIUM CHLORIDE TABS 20 MEQ TABLET.ER (FP) PO ONE ×3 (00:54→07:45)
[2022-02-10] MEDS ORDERED: ATORVASTATIN CA 40 MG TABLET (FP) PO ONE (00:55)
[2022-02-10] MEDS: KCL 10 MEQ IVPB 10 MEQ/100 ML INFUS.BAG IVPB SCH ×3 (01:31→06:20)
[2022-02-10] MEDS ORDERED: ATORVASTATIN CA 40 MG TABLET (FP) ONE (01:33)
[2022-02-10] MEDS ORDERED: KCL 10 MEQ IVPB 10 MEQ/100 ML INFUS.BAG IVPB ONE (01:33)
[2022-02-10 02:51] VITALS: BMI 27.9
[2022-02-10 08:16] LABS: HEMOGLOBIN 11.7 GM/dL (10.7-15.3); MCH 32.1 pg (25.7-33.7); MCHC 34.3 g/dl (32.0-36.0); MEAN CELL VOLUME 93.6 fl (80-96); MEAN PLT VOLUME 7.9 fl (7.5-11.1); PLATELET COUNT 258 10^3/uL (134-434); RBC 3.64 M/mm3 (3.60-5.2); RDW 13.5 % (11.6-15.6); WHITE BLOOD COUNT 8.5 K/mm3 (4.0-10.0)
[2022-02-10 08:32] LABS: BLOOD UREA NITROGEN 17.6 mg/dL (7-18); CALCIUM 8.4 mg/dL (8.5-10.1); MAGNESIUM 2.6 mg/dL (1.8-2.4)
[2022-02-10 08:35] LABS: CREATININE 0.5 mg/dL (0.55-1.3); PHOSPHOROUS 3.6 mg/dL (2.5-4.9)
[2022-02-10] MEDS ORDERED: ENOXAPARIN NA (PORCINE) 40 MG/0.4 ML DISP.SYRIN SQ SCH (10:00)
[2022-02-10 18:01] VITALS: BP 105/48; PULSE 67; TEMP 98.2
[2022-02-10] MEDS ORDERED: ATORVASTATIN CA 40 MG TABLET (FP) PO SCH (22:00)
== END 2022-02-10 18:24 | disposition home or self-care (01) ==
LOC: JER 19:03 → UNDOADMOB 22:28 → JERBED 22:28 → INTOOBSV 22:28 → JERBED 02-10 02:25 → J4W 02-10 02:25 → JERBED 02-10 10:21
PROVIDERS: ADMIT Internal Medicine; ATTEND Internal Medicine
PROC: 3E023GC Introduction of Other Therapeutic Substance into Muscle, Percutaneous Approach (ICD-10-PCS; principal; 2022-02-10)
PROC: 3E033GC Introduction of Other Therapeutic Substance into Peripheral Vein, Percutaneous Approach (ICD-10-PCS; 2022-02-10)
DX: F41.0 Panic disorder [episodic paroxysmal anxiety] (principal); F41.8 Other specified anxiety disorders; I10 Essential (primary) hypertension; E78.5 Hyperlipidemia, unspecified; R74.8 Abnormal levels of other serum enzymes; R42 Dizziness and giddiness; R53.1 Weakness; N94.89 Other specified conditions associated with female genital organs and menstrual cycle; E87.6 Hypokalemia; E87.1 Hypo-osmolality and hyponatremia; R07.89 Other chest pain; R55 Syncope and collapse
CPT/HCPCS: 36415; 70450-TC; 71046-TC-FY; 80048; 80053; 80061; 81003; 83036; 83735; 84100; 84443; 84484; 85025; 85027; 87086; 93005; 93010; 96365; 96372; 99285-25; C9803-CS; G0378; U0003; U0005

== ENCOUNTER 2022-07-29 16:25 | Emergency (ER) | payer OTHER ==
[2022-07-29 16:58] VITALS: BP 146/76; PULSE 96; RESP 20; TEMP 98.4; BMI 25.0
== END 2022-07-29 19:42 | disposition home or self-care (01) ==
LOC: JER 16:25
DX: R42 Dizziness and giddiness (principal); I10 Essential (primary) hypertension
CPT/HCPCS: 93005; 93010; 99283-25

== ENCOUNTER 2023-02-11 14:34 | Observation (INO) | payer OTHER ==
[2023-02-11] MEDS ORDERED: METOCLOPRAMIDE HCL INJECTION 10 MG/2 ML VIAL IVPUSH ONE (15:44)
[2023-02-11] MEDS ORDERED: LACTATED RINGERS SOLUTION 1,000 ML/1,000 ML INFUS.BAG IV SCH ×2 (15:45→21:45)
[2023-02-11] MEDS ORDERED: METOCLOPRAMIDE HCL INJECTION 10 MG/2 ML VIAL ONE (16:10)
[2023-02-11 16:39] LABS: POTASSIUM 5.3 mmol/L (3.5-5.1)
[2023-02-11 16:41] LABS: ALBUMIN 4.1 g/dl (3.4-5.0); BLOOD UREA NITROGEN 30.7 mg/dL (7-18); MAGNESIUM 2.4 mg/dL (1.8-2.4)
[2023-02-11 16:44] LABS: CREATININE 0.7 mg/dL (0.55-1.3)
[2023-02-11 16:46] LABS: BASO % 0.5 % (0-2.0); BILIRUBIN,TOTAL 0.4 mg/dL (0.2-1); EOS % 0.8 % (0-4.5); HEMATOCRIT 38.4 % (32.4-45.2); HEMOGLOBIN 12.5 GM/dL (10.7-15.3); LYMPH % 13.5 % (8-40); MCH 31.1 pg (25.7-33.7); MCHC 32.5 g/dl (32.0-36.0); MEAN CELL VOLUME 95.7 fl (80-96); MEAN PLT VOLUME 8.9 fl (7.5-11.1); MONO % 4.7 % (3.8-10.2); NEUT % 80.5 % (42.8-82.8); PLATELET COUNT 265 10^3/uL (134-434); RBC 4.01 M/mm3 (3.60-5.2); RDW 13.6 % (11.6-15.6); TOT PROT 8.1 g/dl (6.4-8.2); WHITE BLOOD COUNT 11.4 K/mm3 (4.0-10.0)
[2023-02-11 18:10] LABS: EPI CELLS 13 /uL (0-25.1); HYALINE CASTS 0 /uL (0-3.1); URINE APPEARANCE CLEAR; URINE BACTERIA 40 /uL (0-1359); URINE BILIRUBIN NEGATIVE (NEGATIVE); URINE COLOR YELLOW; URINE GLUCOSE (UA) NEGATIVE (NEGATIVE); URINE KETONE NEGATIVE (NEGATIVE); URINE LEUK ESTERASE TRACE (NEGATIVE); URINE NITRITE NEGATIVE (NEGATIVE); URINE PROTEIN NEGATIVE (NEGATIVE); URINE RBC 22 /uL (0-23.9); URINE UROBILINOGEN 0.2 mg/dL (0.2-1.0); URINE WBC 27 /uL (0-25.8)
[2023-02-11 18:49] LABS: POTASSIUM 3.7 mmol/L (3.5-5.1)
[2023-02-11 18:50] LABS: CALCIUM 8.7 mg/dL (8.5-10.1)
[2023-02-11 18:51] LABS: BLOOD UREA NITROGEN 26.6 mg/dL (7-18)
[2023-02-11 18:54] LABS: CREATININE 0.6 mg/dL (0.55-1.3)
[2023-02-11] MEDS ORDERED: ASPIRIN 81 MG CHEWABLE TABLETS PO ONE (19:05)
[2023-02-11] MEDS ORDERED: AMOX TR/POT CLAV 875MG/125MG TABLETS (FP) PO ONE (20:06)
[2023-02-11] MEDS ORDERED: AZITHROMYCIN 250 MG TABLET PO ONE (20:06)
[2023-02-11] MEDS ORDERED: ASPIRIN 81 MG CHEWABLE TABLETS ONE (20:20)
[2023-02-11 22:46] VITALS: BMI 24.4
[2023-02-12 07:31] LABS: HEMATOCRIT 35.3 % (32.4-45.2); HEMOGLOBIN 11.9 GM/dL (10.7-15.3); MCH 31.6 pg (25.7-33.7); MCHC 33.8 g/dl (32.0-36.0); MEAN CELL VOLUME 93.6 fl (80-96); MEAN PLT VOLUME 7.9 fl (7.5-11.1); PLATELET COUNT 232 10^3/uL (134-434); RBC 3.77 M/mm3 (3.60-5.2); RDW 13.7 % (11.6-15.6); WHITE BLOOD COUNT 7.6 K/mm3 (4.0-10.0)
[2023-02-12 07:57] LABS: POTASSIUM 4.4 mmol/L (3.5-5.1)
[2023-02-12 07:59] LABS: CALCIUM 8.7 mg/dL (8.5-10.1)
[2023-02-12 08:00] LABS: MAGNESIUM 2.4 mg/dL (1.8-2.4)
[2023-02-12 08:03] LABS: CREATININE 0.6 mg/dL (0.55-1.3); PHOSPHOROUS 3.1 mg/dL (2.5-4.9)
[2023-02-12 08:05] LABS: CHOLESTEROL 171 mg/dL (50-200)
[2023-02-12 08:06] LABS: LDL CHOLESTEROL (ONLY SJRH) 109 mg/dL (5-100)
[2023-02-12 08:08] LABS: HDL CHOLESTEROL 49 mg/dL (40-60)
[2023-02-12] MEDS ORDERED: CITALOPRAM HYDROBROMIDE 20 MG TABLET PO SCH (10:00)
[2023-02-12] MEDS ORDERED: LOSARTAN POTASSIUM 50 MG TABLET PO SCH (10:00)
[2023-02-12] MEDS ORDERED: ENOXAPARIN NA (PORCINE) 40 MG/0.4 ML DISP.SYRIN SQ SCH (10:00)
[2023-02-12 15:51] VITALS: PULSE 62; RESP 20
[2023-02-12 18:46] VITALS: BP 107/61; TEMP 98.5
[2023-02-13] MEDS ORDERED: ASPIRIN 81 MG CHEWABLE TABLETS PO SCH (10:00)
[2023-02-13] MEDS ORDERED: HYDROCHLOROTHIAZIDE 12.5 MG CAPSULE (FP) PO SCH (10:00)
== END 2023-02-12 19:21 | disposition home or self-care (01) ==
LOC: JER 14:34 → JERBED 19:06 → J4W 21:37
PROVIDERS: ADMIT Internal Medicine; ATTEND Internal Medicine
PROC: 3E023GC Introduction of Other Therapeutic Substance into Muscle, Percutaneous Approach (ICD-10-PCS; principal; 2023-02-11)
PROC: 3E0337Z Introduction of Electrolytic and Water Balance Substance into Peripheral Vein, Percutaneous Approach (ICD-10-PCS; 2023-02-11)
DX: R77.8 Other specified abnormalities of plasma proteins (principal); F41.8 Other specified anxiety disorders; I10 Essential (primary) hypertension; E78.5 Hyperlipidemia, unspecified; R00.2 Palpitations
CPT/HCPCS: 36415; 71045-TC-FY; 80048; 80053; 80061; 81003; 83735; 84100; 84443; 84484; 85025; 85027; 87086; 93005; 93010; 93306-TC; 96361; 96372; 96374; 99285-25; G0378

== ENCOUNTER 2023-02-14 14:20 | Emergency (ER) | payer OTHER ==
[2023-02-14 14:44] VITALS: TEMP 98.7; BMI 25.4
[2023-02-14] MEDS ORDERED: SODIUM CHLORIDE 0.9% 500 ML INFUS.BAG IV ONE (16:01)
[2023-02-14 16:33] LABS: BASO % 0.5 % (0-2.0); EOS % 0.4 % (0-4.5); HEMATOCRIT 38.6 % (32.4-45.2); HEMOGLOBIN 13.1 GM/dL (10.7-15.3); LYMPH % 13.5 % (8-40); MCH 31.3 pg (25.7-33.7); MCHC 33.9 g/dl (32.0-36.0); MEAN CELL VOLUME 92.6 fl (80-96); MONO % 5.5 % (3.8-10.2); NEUT % 80.1 % (42.8-82.8); PLATELET COUNT 264 10^3/uL (134-434); RBC 4.16 M/mm3 (3.60-5.2); RDW 13.5 % (11.6-15.6)
[2023-02-14 17:01] LABS: POTASSIUM 3.9 mmol/L (3.5-5.1)
[2023-02-14 17:04] LABS: ALBUMIN 3.8 g/dl (3.4-5.0); BLOOD UREA NITROGEN 22.2 mg/dL (7-18); CALCIUM 9.2 mg/dL (8.5-10.1); MAGNESIUM 2.4 mg/dL (1.8-2.4)
[2023-02-14 17:07] LABS: CREATININE 1.3 mg/dL (0.55-1.3); PHOSPHOROUS 3.8 mg/dL (2.5-4.9)
[2023-02-14 17:09] LABS: BILIRUBIN,TOTAL 0.2 mg/dL (0.2-1); TOT PROT 7.6 g/dl (6.4-8.2)
[2023-02-14 18:51] VITALS: BP 121/59; PULSE 81; RESP 18
== END 2023-02-14 19:07 | disposition home or self-care (01) ==
LOC: JER 14:20
DX: T50.905A Adverse effect of unspecified drugs, medicaments and biological substances, initial encounter (principal)
CPT/HCPCS: 36415; 80053; 80307; 82550; 82962; 83735; 84100; 84484; 85025; 93005; 93010; 99284-25

== ENCOUNTER 2024-09-24 11:17 | Emergency (ER) | payer OTHER ==
[2024-09-24 11:26] VITALS: BP 120/53; PULSE 75; RESP 16; TEMP 98.4; BMI 27.3
[2024-09-24] MEDS ORDERED: RABIES VACCINE (PCEC)/PF 2.5 UNIT/VIAL IM ONE (11:34)
[2024-09-24] MEDS: RABIES VACCINE (PCEC)/PF 2.5 UNIT/VIAL IM ONE (11:42)
== END 2024-09-24 11:48 | disposition home or self-care (01) ==
LOC: JERFT 11:17
PROC: 3E023GC Introduction of Other Therapeutic Substance into Muscle, Percutaneous Approach (ICD-10-PCS; principal; 2024-09-24)
DX: Z23 Encounter for immunization (principal)
CPT/HCPCS: 90675; 99281-25

== ENCOUNTER 2024-10-01 12:11 | Emergency (ER) | payer OTHER ==
[2024-10-01 12:18] VITALS: BP 116/56; PULSE 65; RESP 18; TEMP 97.9; BMI 25.4
[2024-10-01] MEDS ORDERED: RABIES VACCINE (PCEC)/PF 2.5 UNIT/VIAL IM ONE (12:44)
[2024-10-01] MEDS: RABIES VACCINE (PCEC)/PF 2.5 UNIT/VIAL IM ONE (12:52)
== END 2024-10-01 13:17 | disposition home or self-care (01) ==
LOC: JERFT 12:11
PROC: 3E0234Z Introduction of Serum, Toxoid and Vaccine into Muscle, Percutaneous Approach (ICD-10-PCS; principal; 2024-10-01)
DX: Z23 Encounter for immunization (principal)
CPT/HCPCS: 90675; 99281-25

== ENCOUNTER 2025-01-27 12:25 | Emergency (ER) | payer OTHER ==
[2025-01-27 12:35] VITALS: PULSE 76; RESP 16; TEMP 97.9; BMI 26.4
[2025-01-27] MEDS ORDERED: MECLIZINE HCL 25 MG TABLET (FP) ONE (13:26)
[2025-01-27] MEDS: MECLIZINE HCL 25 MG TABLET (FP) PO ONE (13:28)
[2025-01-27 15:02] VITALS: BP 140/90
== END 2025-01-27 15:17 | disposition home or self-care (01) ==
LOC: JER 12:25
DX: R42 Dizziness and giddiness (principal); I10 Essential (primary) hypertension
CPT/HCPCS: 93005; 93010; 99283-25